=== PATIENT | female | born 1995 | race Caucasian/White ===

== ENCOUNTER 2016-07-02 14:34 | Emergency (ER) | payer OTHER ==
[2016-07-02] MEDS ORDERED: ONDANSETRON 4 MG/2 ML VIAL IVP STA (15:07)
[2016-07-02] MEDS ORDERED: SODIUM CHLORIDE 0.9% 500 ML IV STA (15:07)
[2016-07-02 15:50] LABS: Basophils # (A) 0.1 k/uL (0-0.2); Basophils % (A) 1 %; CH 31.7; CHCM 35.2; Eosinophils # (A) 0.1 k/uL (0-0.7); Eosinophils % (A) 1 %; HCT 41.4 % (34.0-46.0); HDW 2.75; HGB 13.9 gm/dL (11.4-16.0); Luc # (Auto) 0.21; Luc % (Auto) 2; Lymphocytes # (A) 1.9 k/uL (1.0-4.8); Lymphocytes % (A) 19 %; MCH 30.5 pg (25.0-35.0); MCHC 33.7 g/dL (31.0-37.0); MCV 90.7 fL (80.0-100.0); Mean Platelet Volume 8.7; Monocytes # (A) 0.5 k/uL (0-1.0); Monocytes % (A) 5 %; Neutrophils # (A) 7.2 k/uL (1.3-7.7); Neutrophils % (A) 73 %; RBC 4.56 m/uL (3.80-5.40); RDW 12.7 % (11.5-15.5); WBC 9.9 k/uL (3.8-10.6); WBC (Perox) 10.16
[2016-07-02 15:59] LABS: ALT 56 U/L (9-52); AST 24 U/L (14-36); Alkaline Phosphatase 52 U/L (38-126); Amylase <30 U/L (30-110); Anion Gap 10 mmol/L; Blood Urea Nitrogen 6 mg/dL (7-17); Calcium 9.1 mg/dL (8.4-10.2); Carbon Dioxide 23 mmol/L (22-30); Chloride 105 mmol/L (98-107); Glucose 71 mg/dL (74-99); Non-African American GFR(MDRD) >60 (>60 ml/min/1.73 sqM); Potassium 3.8 mmol/L (3.5-5.1); Sodium 138 mmol/L (137-145); Total Bilirubin 0.5 mg/dL (0.2-1.3); Total Protein 7.1 g/dL (6.3-8.2)
[2016-07-02 16:00] LABS: Amorphous Sediment,Urine Occasional /hpf; Appearance,Urine Turbid (Clear); Bacteria,Urine Moderate /hpf; Bilirubin,Urine Negative (Negative); Glucose,Urine (UA) Negative (Negative); Ketones,Urine Negative (Negative); Leukocyte Esterase,Urine Large (Negative); Nitrite,Urine Negative (Negative); PH, Urine 7.5 (5.0-8.0); Particle Count 19653; Protein,Urine Trace (Negative); RBC,Urine 6 /hpf (0-5); Specific Gravity,Urine 1.015 (1.001-1.035); Squamous Epithelial Cell,Urine 8 /hpf (0-4); UA Billing (MACRO vs. MICRO) MICRO; WBC,Urine 8 /hpf (0-5)
--- NOTE | 2016-07-02 16:03 | ED ---
Abdominal Pain HPI - General Chief Complaint: Abdominal Pain Stated Complaint: abdominal pain Time Seen by Provider: 07/02/16 15:02 Source: patient, RN notes reviewed Mode of arrival: ambulatory Limitations: no limitations - History of Present Illness Initial Comments: 20-year-old female presents emergency Department chief complaint lower abdominal pain. Patient states that she had some lower abdominal pain started last night but states it has alleviated some of states she does have epigastric pain. Patient denies any vomiting states she's had some slight nausea no dysuria no hematuria no vaginal bleeding or vaginal discharge. Patient states she had a last year and delivered though she states she has no chance at this time. Patient has fever, chills, flank pain. Patient offers no other complaints at this time. - Related Data Home Medications Medication Instructions Recorded Confirmed levETIRAcetam [Keppra] 2,000 mg PO Q12HR 06/13/15 07/02/16 Allergies Allergy/AdvReac Type Severity Reaction Status Date / Time sulfamethoxazole Allergy Unknown Verified 07/02/16 15:17 [From ] trimethoprim [From Janra] Allergy Unknown Verified 07/02/16 15:17 Review of Systems ROS Statement: Those systems with pertinent positive or pertinent negative responses have been documented in the HPI. ROS Other: All systems not noted in ROS Statement are negative. Past Medical History Past Medical History: GERD/Reflux, Seizure Disorder Additional Past Medical History / Comment(s): stomach ulcers, hypoglycemia, History of Any Multi-Drug Resistant Organisms: None Reported Past Surgical History: Appendectomy, Tonsillectomy Additional Past Surgical History / Comment(s): tubes in ears Past Psychological History: ADD/ADHD, Depression Smoking Status: Current every day smoker Past Alcohol Use History: Occasional Past Drug Use History: None Reported General Exam Limitations: no limitations General appearance: alert, in no apparent distress Head exam: Present: atraumatic, normocephalic, normal inspection Respiratory exam: Present: normal lung sounds bilaterally. Absent: respiratory distress, wheezes, rales, rhonchi, stridor Cardiovascular Exam: Present: regular rate, normal rhythm, normal heart sounds. Absent: systolic murmur, diastolic murmur, rubs, gallop, clicks GI/Abdominal exam: Present: soft, tenderness (Minimal suprapubic tenderness), normal bowel sounds. Absent: distended, guarding, rebound, rigid Back exam: Absent: CVA tenderness (R), CVA tenderness (L) Skin exam: Present: warm, dry, intact, normal color. Absent: rash Course Vital Signs 07/02/16 14:51 Temperature 98.4 F Pulse Rate 66 Respiratory 18 Rate Blood Pressure 115/69 O2 Sat by Pulse 99 Oximetry Medical Decision Making - Medical Decision Making 20-year-old female presented for lower abdominal pain. Patient did have a positive test ultrasound does show single viable IUP 7 weeks and 2 days with a heart rate 178. Patient states she does not warrant further care for this at this time. Patient be discharged and strongly advised to follow-up with her ANALYSIS MANAGER Dr. Cole. - Lab Data Result diagrams: 07/02/16 15:20 07/02/16 15:20 Lab Results 07/02/16 07/02/16 07/02/16 Range/Units 15:20 15:20 15:20 WBC 9.9 (3.8-10.6) k/uL RBC 4.56 (3.80-5.40) m/uL Hgb 13.9 (11.4-16.0) gm/dL Hct 41.4 (34.0-46.0) % MCV 90.7 (80.0-100.0) fL MCH 30.5 (25.0-35.0) pg MCHC 33.7 (31.0-37.0) g/dL RDW 12.7 (11.5-15.5) % Plt Count 216 (150-450) k/uL Neutrophils % 73 % Lymphocytes % 19 % Monocytes % 5 % Eosinophils % 1 % Basophils % 1 % Neutrophils # 7.2 (1.3-7.7) k/uL Lymphocytes # 1.9 (1.0-4.8) k/uL Monocytes # 0.5 (0-1.0) k/uL Eosinophils # 0.1 (0-0.7) k/uL Basophils # 0.1 (0-0.2) k/uL Sodium 138 (137-145) mmol/L Potassium 3.8 (3.5-5.1) mmol/L Chloride 105 (98-107) mmol/L Carbon Dioxide 23 (22-30) mmol/L Anion Gap 10 mmol/L BUN 6 L (7-17) mg/dL Creatinine 0.69 (0.52-1.04) mg/dL Est GFR (MDRD) Af Amer >60 (>60 ml/min/1.73 sqM) Est GFR (MDRD) Non-Af >60 (>60 ml/min/1.73 sqM) Glucose 71 L (74-99) mg/dL Calcium 9.1 (8.4-10.2) mg/dL Total Bilirubin 0.5 (0.2-1.3) mg/dL AST 24 (14-36) U/L ALT 56 H (9-52) U/L Alkaline Phosphatase 52 (38-126) U/L Total Protein 7.1 (6.3-8.2) g/dL Albumin 4.0 (3.5-5.0) g/dL Amylase <30 L (30-110) U/L Lipase 76 (23-300) U/L Urine Color Urine Appearance (Clear) Urine pH (5.0-8.0) Ur Specific [place] (1.001-1.035) Urine Protein (Negative) Urine Glucose (UA) (Negative) Urine Ketones (Negative) Urine Blood (Negative) Urine Nitrate (Negative) Urine Bilirubin (Negative) Urine Urobilinogen (<2.0) mg/dL Ur Leukocyte Esterase (Negative) Urine RBC (0-5) /hpf Urine WBC (0-5) /hpf Ur Squamous Epith Cells (0-4) /hpf Amorphous Sediment (None) /hpf Urine Bacteria (None) /hpf Urine HCG, Qual Detected (Not Detectd) 07/02/16 Range/Units 15:20 WBC (3.8-10.6) k/uL RBC (3.80-5.40) m/uL Hgb (11.4-16.0) gm/dL Hct (34.0-46.0) % MCV (80.0-100.0) fL MCH (25.0-35.0) pg MCHC (31.0-37.0) g/dL RDW (11.5-15.5) % Plt Count (150-450) k/uL Neutrophils % % Lymphocytes % % Monocytes % % Eosinophils % % Basophils % % Neutrophils # (1.3-7.7) k/uL Lymphocytes # (1.0-4.8) k/uL Monocytes # (0-1.0) k/uL Eosinophils # (0-0.7) k/uL Basophils # (0-0.2) k/uL Sodium (137-145) mmol/L Potassium (3.5-5.1) mmol/L Chloride (98-107) mmol/L Carbon Dioxide (22-30) mmol/L Anion Gap mmol/L BUN (7-17) mg/dL Creatinine (0.52-1.04) mg/dL Est GFR (MDRD) Af Amer (>60 ml/min/1.73 sqM) Est GFR (MDRD) Non-Af (>60 ml/min/1.73 sqM) Glucose (74-99) mg/dL Calcium (8.4-10.2) mg/dL Total Bilirubin (0.2-1.3) mg/dL AST (14-36) U/L ALT (9-52) U/L Alkaline Phosphatase (38-126) U/L Total Protein (6.3-8.2) g/dL Albumin (3.5-5.0) g/dL Amylase (30-110) U/L Lipase (23-300) U/L Urine Color Yellow Urine Appearance Turbid H (Clear) Urine pH 7.5 (5.0-8.0) Ur Specific [place] 1.015 (1.001-1.035) Urine Protein Trace H (Negative) Urine Glucose (UA) Negative (Negative) Urine Ketones Negative (Negative) Urine Blood Negative (Negative) Urine Nitrate Negative (Negative) Urine Bilirubin Negative (Negative) Urine Urobilinogen 2.0 (<2.0) mg/dL Ur Leukocyte Esterase Large H (Negative) Urine RBC 6 H (0-5) /hpf Urine WBC 8 H (0-5) /hpf Ur Squamous Epith Cells 8 H (0-4) /hpf Amorphous Sediment Occasional H (None) /hpf Urine Bacteria Moderate H (None) /hpf Urine HCG, Qual (Not Detectd) Disposition Clinical Impression: Disposition: HOME SELF-CARE Condition: Stable Instructions: (ED) Additional Instructions: Please return to the Emergency Department if symptoms worsen or any other concerns. Referrals: Bharat Jain DO [Primary Care Provider] - 1-2 days Time of Disposition: 17:05
--- NOTE | 2016-07-02 17:07 | US ---
EXAMINATION TYPE: US OB <=14 wks transvag DATE OF EXAM: 07/02/2016 4:38 PM COMPARISON: NONE CLINICAL HISTORY: Pain. EXAM PERFORMED: Transvaginal (TV) EXAM MEASUREMENTS: GESTATIONAL AGE / DATING Physician Established: none Dates by LMP: uncertain, possibly 05/17/2106 Dates by First Scan: no previous Dates by Current Scan for: (7 weeks/2 days) EDC: 02/16/2017 MATERNAL ANATOMY Uterus: 10.5 x 6.7 x 8.4 cm Right Ovary: 2.8 x 1.8 x 2.5 cm Left Ovary: 2.8 x 2.4 x 3.0 cm Post CDS / Adnexa: fluid right adnexa Presence of free fluid: yes, rt adnexa Presence of corpus luteal cyst: possible, faintly hypoechoic 2.0 cm area left ovary Presence of subchorionic bleed: no GESTATION / SURVEY CRL: 1.1 (7 weeks/2 days) Yolk Sac (normal less than 6mm): 4.9 Heart Rate: 178 bpm Rhythm: Normal IUP: Viable IUP Date of LMP: uncertain, possibly 05/17/2016 TECHNOLOGIST IMPRESSION: Single, viable 7 week 2 day IUP. EDC of 02/16/2017 IMPRESSION: The ultrasound gestational age is 7 weeks 2 days. I see no complicating process.
[2016-07-02 17:22] VITALS: BP 125/76; PULSE 78; RESP 16; TEMP 98.6
== END 2016-07-02 17:22 | disposition home or self-care (01) ==
LOC: EC 14:34
DX: O99.89 Other specified diseases and conditions complicating pregnancy, childbirth and the puerperium (principal); O99.351 Diseases of the nervous system complicating pregnancy, first trimester; O99.611 Diseases of the digestive system complicating pregnancy, first trimester; O99.331 Smoking (tobacco) complicating pregnancy, first trimester; R10.30 Lower abdominal pain, unspecified; R10.13 Epigastric pain; R11.0 Nausea; K21.9 Gastro-esophageal reflux disease without esophagitis; G40.909 Epilepsy, unspecified, not intractable, without status epilepticus; F17.200 Nicotine dependence, unspecified, uncomplicated; Z32.01 Encounter for pregnancy test, result positive; Z3A.01 Less than 8 weeks gestation of pregnancy; Z87.19 Personal history of other diseases of the digestive system; Z79.899 Other long term (current) drug therapy; Z88.2 Allergy status to sulfonamides; Z90.49 Acquired absence of other specified parts of digestive tract
CPT/HCPCS: 36415; 80053; 82150; 83690; 85025; 81001; 81025; 84702; 76817; 99284; 96374; 96361; J2405; 76801

== ENCOUNTER 2016-07-21 16:57 | Emergency (ER) | payer OTHER ==
[2016-07-21] MEDS ORDERED: ACETAMINOPHEN IV (For NPO) 1,000 MG in EMPTY BAG 1 BAG IVPB ONE (17:50)
[2016-07-21] MEDS ORDERED: SODIUM CHLORIDE 0.9% 1,000 ML IV ONE (17:50)
[2016-07-21] MEDS ORDERED: METOCLOPRAMIDE 5 MG/ML 2 ML VIAL IVP STA (17:51)
--- NOTE | 2016-07-21 17:54 | ED ---
General Adult HPI - General Chief complaint: Upper Respiratory Infection Stated complaint: flu-like symptoms Time Seen by Provider: 07/21/16 17:37 Source: patient, RN notes reviewed, old records reviewed Mode of arrival: ambulatory Limitations: no limitations - History of Present Illness Initial comments: Chief complaint history of present illness a 20-year-old female whose 9-10 weeks . Here with flu symptoms. 2 over children recently diagnosed with the flu. Patient complains of fever muscle aches and pains and vomiting. - Related Data Home Medications Medication Instructions Recorded Confirmed levETIRAcetam [Keppra] 2,000 mg PO Q12HR 06/13/15 07/21/16 Acetaminophen Tab [Tylenol] 650 mg PO Q6H PRN 07/21/16 07/21/16 Previous Rx's Medication Instructions Recorded Ondansetron Odt [Zofran ODT] 4 mg PO Q8HR PRN #5 tab 07/21/16 Oseltamivir [Tamiflu] 75 mg PO Q12HR #10 cap 07/21/16 Allergies Allergy/AdvReac Type Severity Reaction Status Date / Time sulfamethoxazole Allergy Unknown Verified 07/21/16 18:31 [From ] trimethoprim [From Janra] Allergy Unknown Verified 07/21/16 18:31 Review of Systems ROS Statement: Those systems with pertinent positive or pertinent negative responses have been documented in the HPI. Review of systems. Mild headache or visual acuity changes no stiff neck. Occasional cough vomiting several times muscle aches and pains and fever. Both her children have a flu. All systems are reviewed. Past medical problems significant for GERD, seizure disorder for which he takes Keppra, stomach ulcers. Surgeries appendectomy tonsillectomy and ear tubes. Family history noncontributory nonsmoker nondrinker ALLERGIES to sulfa. ROS Other: All systems not noted in ROS Statement are negative. Past Medical History Past Medical History: GERD/Reflux, Seizure Disorder Additional Past Medical History / Comment(s): stomach ulcers, hypoglycemia, History of Any Multi-Drug Resistant Organisms: None Reported Past Surgical History: Appendectomy, Tonsillectomy Additional Past Surgical History / Comment(s): tubes in ears Past Psychological History: ADD/ADHD, Depression Smoking Status: Current every day smoker Past Alcohol Use History: Occasional Past Drug Use History: None Reported General Exam - General Exam Comments Initial Comments: General: The patient is awake and alert, complaining of fever, muscle aches and pains, flu type symptoms for 24 hours. Vital signs show temperature 100.8 pulse 98 respiratory rate 20 pulse ox 99% room air blood pressure 117/62 Eye: Pupils are equal, round and reactive to light, extra-ocular movements are intact ; there is normal conjunctiva bilaterally. No signs of icterus. Ears, nose, mouth and throat: There are moist mucous membranes and no oral lesions. Neck: The neck is supple, there is no tenderness . Cardiovascular: There is a regular rate and rhythm. No murmur, rub or gallop is appreciated. Respiratory: Lungs are clear to auscultation, respirations are non-labored, breath sounds are equal. No wheezes, stridor, rales, or rhonchi. Gastrointestinal: Soft, non-distended, non-tender abdomen without masses or organomegaly noted. There is no rebound or guarding present. No CVA tenderness. Bowel sounds are unremarkable. Back: There is no tenderness to palpation in the midline. There is no obvious deformity. No rashes noted. Musculoskeletal: Normal ROM, no tenderness, There is no pedal edema. There is no calf tenderness or swelling. Sensation intact. Neurological: No neuro deficits complained of or noted on exam. Skin: Skin is warm and dry and no rashes or lesions are noted. Limitations: no limitations Course Vital Signs 07/21/16 07/21/16 07/21/16 17:13 19:10 20:13 Temperature 100.8 F H 101.5 F H 99.2 F Pulse Rate 98 100 87 Respiratory 20 18 18 Rate Blood Pressure 117/62 137/90 105/53 O2 Sat by Pulse 99 97 97 Oximetry Medical Decision Making - Medical Decision Making Patient's feeling much better after IV fluids. The patient caring for 2 children with influenza. She has influenza symptoms. She'll be placed on Tamiflu to be taken as directed. Follow-up with family physician return emergency room as needed. Disposition Clinical Impression: Influenza Disposition: HOME SELF-CARE Condition: Stable Instructions: Influenza (ED) Additional Instructions: Use Zofran control nausea vomiting increase fluids. Take Tamiflu one tablet twice day for 5 days. Follow-up with your family physician and your OB and/or return emergency room as needed Prescriptions: Ondansetron Odt [Zofran ODT] 4 mg PO Q8HR PRN #5 tab PRN Reason: Nausea Oseltamivir [Tamiflu] 75 mg PO Q12HR #10 cap Time of Disposition: 20:28
[2016-07-21] MEDS ORDERED: SODIUM CHLORIDE 0.9% 1,000 ML IV SCH (18:00)
[2016-07-21 19:21] VITALS: RESP 18
[2016-07-21 20:14] VITALS: BP 105/53; PULSE 87; TEMP 99.2
[2016-07-21] MEDS ORDERED: OSELTAMIVIR 75 MG CAP PO STA (20:25)
== END 2016-07-21 20:51 | disposition home or self-care (01) ==
LOC: EC 16:57
DX: J11.1 Influenza due to unidentified influenza virus with other respiratory manifestations (principal); O26.891 Other specified pregnancy related conditions, first trimester; Z3A.09 9 weeks gestation of pregnancy; Z79.899 Other long term (current) drug therapy; Z88.2 Allergy status to sulfonamides; Z88.8 Allergy status to other drugs, medicaments and biological substances; G40.909 Epilepsy, unspecified, not intractable, without status epilepticus; O99.331 Smoking (tobacco) complicating pregnancy, first trimester
CPT/HCPCS: 96365; 96375; 96361; 99283; J2765; J0131

== ENCOUNTER → 2016-09-09 | Outpatient (CLI) | payer OTHER ==
[2016-09-09 14:53] LABS: CH 31.9; CHCM 34.3; HCT 36.2 % (34.0-46.0); HDW 2.71; HGB 12.2 gm/dL (11.4-16.0); MCH 31.4 pg (25.0-35.0); MCHC 33.7 g/dL (31.0-37.0); MCV 93.4 fL (80.0-100.0); Mean Platelet Volume 7.1; RBC 3.88 m/uL (3.80-5.40); RDW 14.1 % (11.5-15.5); WBC 11.6 k/uL (3.8-10.6)
[2016-09-09 14:57] LABS: Appearance,Urine Clear (Clear); Bacteria,Urine Rare /hpf; Bilirubin,Urine Negative (Negative); Glucose,Urine (UA) Negative (Negative); Ketones,Urine Negative (Negative); Leukocyte Esterase,Urine Moderate (Negative); Mucus,Urine Rare /hpf; Nitrite,Urine Negative (Negative); PH, Urine 5.5 (5.0-8.0); Particle Count 3333; Protein,Urine Negative (Negative); RBC,Urine 1 /hpf (0-5); Specific Gravity,Urine 1.015 (1.001-1.035); Squamous Epithelial Cell,Urine 3 /hpf (0-4); UA Billing (MACRO vs. MICRO) MICRO; Urobilinogen,Urine <2.0 mg/dL (<2.0); WBC,Urine 7 /hpf (0-5)
[2016-09-09 15:53] LABS: HCG,Quantitative Serum 17372.6 mIU/mL
[2016-09-09 19:49] LABS: Treponemal Ab Non-Reactive (Non-Reactive)
[2016-09-10 07:31] LABS: HIV-1/HIV-2 Ab Screen NONREAC (NON REAC)
== END | disposition home or self-care (01) ==
LOC: LABWHC1 14:19
PROVIDERS: ATTEND Obstetrics & Gynecology
DX: O23.41 Unspecified infection of urinary tract in pregnancy, first trimester (principal); E55.9 Vitamin D deficiency, unspecified; Z3A.00 Weeks of gestation of pregnancy not specified
CPT/HCPCS: 36415; 80306; 81001; 82306; 82947; 84702; 85027; 86762; 86780; 86850; 86900; 86901; 87086; 87389

== ENCOUNTER → 2017-01-08 | Outpatient (CLI) | payer OTHER ==
--- NOTE | 2017-01-08 15:36 | US ---
EXAMINATION TYPE: US OB anatomy transabd DATE OF EXAM: 01/08/2017 COMPARISON: 07/02/2016 HISTORY: 21-year-old female Z34.90 SUPERVISION OF NORMAL 3rd trimester scan, pt has no comp laints at this time TECHNIQUE: Transabdominal (TA) FINDINGS: EXAM MEASUREMENTS: GESTATIONAL AGE / DATING Physician Established: (34 weeks/3 days) EDC: 02/16/2017 Dates by LMP: Unknown Dates by First Scan: (34 weeks/3 days) EDC: 02/16/2017 Dates by Current Scan for: (33 weeks/3 days) EDC: 02/23/2017 SURVEY IUP: Single PLACENTA: Anterior PREVIA: No previa RUBÉN: 13.2 cm Normal CERVICAL LENGTH (transabdominal: norm > 3.0cm): 3.6 cm BIOMETRY PRESENTATION: Vertex BPD: 8.5 cm 34 weeks / 1 days HC: 30.7 cm 34 weeks / 1 days AC: 30.3 cm 34 weeks / 2 days FL: 6.4 cm 32 weeks / 6 days ESTIMATED WEIGHT IN GRAMS: 2302 grams ESTIMATED WEIGHT IN LBS/OZS: 5 lbs. 1 oz. WEIGHT PERCENTAGE BASED ON ESTABLISHED DATE: 29.5 % HC/AC: 1.01 Normal FL/AC: 21 Normal HEART RATE: 143 bpm RHYTHM: Normal ANATOMY SEEN (within normal limits): Lateral Vent (< 1 cm) 0.6 cm Cisterna Magna (< 1.1 cm) 0.5 cm Cerebellum (varies with age) 4.7 cm Cavus Septi Pellucidi Four Chamber Heart Outflow tracts: LVOT/RVOT Stomach Situs Nose / Lips Diaphragm Kidneys (bilateral) Three Vessel Cord ANATOMY NOT SEEN OR SUBOPTIMALLY VISUALIZED: Choroid Plexus (bilateral) Midline Falx Cord Insert Bladder Longitudinal Spine Transverse Spine Arms (bilateral) Legs (bilateral) SCREW MACHINE SETTER NOTES:Single, viable IUP/ Growth parameters 29.5 %/ No abnormality seen at this time IMPRESSION: 1. Single live intrauterine with established gestational age of 34 weeks 3 days by prior da ting scan. Current ultrasound biometry is smaller but still concordant (33 weeks 3 days). This places the gestation at the 30th percentile for weight. Follow-up as indicated. 2. Note that a number of structures of the survey were either not seen or were suboptimally vis ualized due to position and relatively advanced age.
== END | disposition home or self-care (01) ==
LOC: RADUSWWP 14:42
PROVIDERS: ATTEND Obstetrics & Gynecology
DX: Z34.93 Encounter for supervision of normal pregnancy, unspecified, third trimester (principal); Z3A.33 33 weeks gestation of pregnancy
CPT/HCPCS: 76811

== ENCOUNTER 2017-01-17 22:58 | Outpatient (CLI) | payer OTHER ==
[2017-01-17 23:20] VITALS: BP 118/57; PULSE 84; RESP 16; TEMP 97.1
--- NOTE | 2017-01-18 09:28 | P.MSEPDOC ---
Presenting Problems - Arrival Data Date of Arrival on Unit: 01/17/17 Time of Arrival on Unit: 22:58 Mode of Transport: Wheelchair - Complaint OB-Reason for Admission/Chief Complaint: Possible Onset of Labor Comment: Contractions that started around 2213 this evening approximately 3 minutes apart Medical History - Information : 4 Para: 3 Term: 2 : 1 Abortions: Spontaneous or Elective: 0 Number of Living Children: 3 - Gestational Age Expected Date of Delivery: 02/16/17 Gestational Age by KACI (wks/days): 35 Weeks and 6 Days Review of Systems - Review of Systems Constitutional: No problems Breast: No problems ENT: No problems Cardiovascular: No problems Respiratory: No problems Gastrointestinal: No problems Genitourinary: No problems Musculoskeletal: No problems Neurological: No problems Skin: No problems Vital Signs - Temperature Temperature: 97.1 F Temperature Source: Temporal Artery Scan - Pulse Pulse Oximetery Pulse Rate: 84 Pulse Assessment Method: Automatic Cuff - Respirations Respiratory Rate: 16 Oxygen Delivery Method: Room Air - Blood Pressure Sitting Blood Pressure: 118/57 Blood Pressure Mean: 77 Blood Pressure Source: Automatic Cuff Medical Screen Scoring (Pre) - Cervical Exam Dilation: 1-3 cm = 1 Effacement: More than 50% = 2 Membranes: Intact - Uterine Contractions Frequency: > 5 minutes apart = 1 Duration: N/A Intensity: N/A - Maternal Vital Signs Maternal Temperature: N/A Maternal Blood Pressure: N/A Signs of Preeclampsia: N/A Maternal Respirations: N/A - Maternal Trauma Maternal Trauma: N/A - Assessment Baseline FHR: 140 Heart Rate - NICHD Category: Category I (Normal) = 0 NST: Reactive Position: N/A Station: N/A - Total Score Total Score (Pre): 4 - Level of Risk Level of Risk: Low (0-5) Physician Notification (Pre) - Physician Notified Physician Notified Date: 01/18/17 Physician Notified Time: 23:30 Physician/Practitioner Notifed:: Dr. Cano - Notification Comment Comment: Orders given to recheck cervix at 1 hour, if cervix remains unchanged okay to discharge patient home with instructions, if patient has made cervical change call physician with report. Disposition - Disposition OB Disposition: Discharge to home, Written follow up instructions reviewed Discharge Date: 01/18/17 Discharge Time: 00:15 I agree with the RN Medical Screening Exam: Yes Risk & Benefit of care provided described in d/c instruction: Yes Diagnosis: FALSE LABOR BEFORE 37 COMPLETED WEEKS OF GEST, THIRD TRI
== END 2017-01-18 00:15 | disposition home or self-care (01) ==
LOC: FBPOP 22:58
PROVIDERS: ATTEND Obstetrics & Gynecology
DX: O47.03 False labor before 37 completed weeks of gestation, third trimester (principal); Z3A.35 35 weeks gestation of pregnancy
CPT/HCPCS: 59025; G0463; 99213

== ENCOUNTER 2017-01-26 00:18 | Outpatient (CLI) | payer OTHER ==
[2017-01-26 01:55] VITALS: BP 108/62; PULSE 65; RESP 16; TEMP 97.6
--- NOTE | 2017-04-22 13:52 | P.MSEPDOC ---
Presenting Problems - Arrival Data Date of Arrival on Unit: 01/26/17 Time of Arrival on Unit: 00:19 Mode of Transport: Wheelchair - Complaint OB-Reason for Admission/Chief Complaint: Possible Onset of Labor Medical History - Information : 4 Para: 3 - Gestational Age Gestational Age by KACI (wks/days): 37 Weeks and 0 Days - History Comment: DOM pt of dr stewart from [place] Review of Systems - Review of Systems Constitutional: No problems Breast: No problems ENT: No problems Cardiovascular: No problems Respiratory: No problems Gastrointestinal: No problems Genitourinary: No problems Musculoskeletal: No problems Neurological: No problems Skin: No problems Vital Signs - Temperature Temperature: 97.6 F Temperature Source: Temporal Artery Scan - Pulse Right Sitting Brachial Pulse Rate: 65 Pulse Assessment Method: Automatic Cuff - Respirations Respiratory Rate: 16 Oxygen Delivery Method: Room Air O2 Sat by Pulse Oximetry: 97 - Blood Pressure Right Arm Sitting Blood Pressure: 108/62 Blood Pressure Mean: 77 Blood Pressure Source: Automatic Cuff Medical Screen Scoring (Pre) - Cervical Exam Dilation: 1-3 cm = 1 Effacement: More than 50% = 2 Membranes: Intact - Uterine Contractions Frequency: > or = 36 weeks =2 Duration: > 40 seconds = 2 - Maternal Vital Signs Maternal Temperature: N/A Maternal Blood Pressure: N/A Signs of Preeclampsia: N/A Maternal Respirations: N/A - Maternal Trauma Maternal Trauma: N/A - Assessment Baseline FHR: 130 Heart Rate - NICHD Category: Category I (Normal) = 0 NST: Reactive Position: N/A Station: N/A - Total Score Total Score (Pre): 7 - Level of Risk Level of Risk: Medium (6-9) Physician Notification (Pre) - Physician Notified Physician Notified Date: 01/26/17 Physician Notified Time: 01:44 Spoke With: dr madrigal New Order Received: Yes - Notification Comment Comment: discharge home Disposition - Disposition OB Disposition: Discharge to home Discharge Date: 01/26/17 Discharge Time: 01:44 I agree with the RN Medical Screening Exam: Yes Risk & Benefit of care provided described in d/c instruction: Yes Diagnosis: FALSE LABOR AT OR AFTER 37 COMPLETED WEEKS OF GESTATION
== END 2017-01-26 01:47 | disposition home or self-care (01) ==
LOC: FBPOP 00:18
PROVIDERS: ATTEND Obstetrics & Gynecology Obstetrics
DX: O47.1 False labor at or after 37 completed weeks of gestation (principal); Z3A.37 37 weeks gestation of pregnancy
CPT/HCPCS: 59025; G0463; 99213

== ENCOUNTER 2017-02-13 13:50 | Outpatient (CLI) | payer OTHER ==
[2017-02-13 15:36] VITALS: BP 104/65; PULSE 85; RESP 16; TEMP 97.5
--- NOTE | 2017-03-07 20:10 | P.MSEPDOC ---
Presenting Problems - Arrival Data Date of Arrival on Unit: 02/13/17 Time of Arrival on Unit: 13:50 Mode of Transport: Ambulatory - Complaint Comment: Pt sent up from U/S after a low RUBÉN and low EFW. Pt states her OB Dr in [place] was notified of these results and told the pt to report to [facility] at this hospital for an evaluation. Medical History - Information : 4 Para: 3 Term: 2 : 1 Abortions: Spontaneous or Elective: 0 Number of Living Children: 3 - Gestational Age Gestational Age by KACI (wks/days): 39 Weeks and 4 Days Review of Systems - Review of Systems Constitutional: No problems Breast: No problems ENT: No problems Cardiovascular: No problems Respiratory: No problems Gastrointestinal: No problems Genitourinary: No problems Musculoskeletal: No problems Skin: No problems Comment: Pt reports she has epilepsy and takes Keppra for it. Vital Signs - Temperature Temperature: 97.5 F Temperature Source: Oral - Pulse Brachial Pulse Rate: 85 Pulse Assessment Method: Automatic Cuff - Respirations Respiratory Rate: 16 Oxygen Delivery Method: Room Air - Blood Pressure Right Arm Blood Pressure: 104/65 Blood Pressure Mean: 78 Blood Pressure Source: Automatic Cuff Medical Screen Scoring (Pre) - Cervical Exam Dilation: Exam Deferred Effacement: Exam Deferred Membranes: Intact - Uterine Contractions Frequency: > 5 minutes apart = 1 Duration: > 40 seconds = 2 Intensity: N/A - Maternal Vital Signs Maternal Temperature: N/A Maternal Blood Pressure: N/A Signs of Preeclampsia: N/A Maternal Respirations: N/A - Maternal Trauma Maternal Trauma: N/A - Assessment Baseline FHR: 140 Heart Rate - NICHD Category: Category I (Normal) = 0 NST: Reactive Position: N/A Station: N/A - Total Score Total Score (Pre): 3 - Level of Risk Level of Risk: Low (0-5) Physician Notification (Pre) - Physician Notified Physician Notified Date: 02/13/17 Physician Notified Time: 14:47 Physician/Practitioner Notifed:: Dr. Aguilar Spoke With: Dr. Aguilar New Order Received: Yes - Notification Comment Comment: Notified Dr on pts arrival after U/S results of low RUBÉN of 7.33 and low EFW of 2975g. Dr. Lensmeyer states she should be d/c and be seen by her OB Dr in [place]. Disposition - Disposition OB Disposition: Triage Discharge Date: 02/13/17 Discharge Time: 14:55 I agree with the RN Medical Screening Exam: Yes Risk & Benefit of care provided described in d/c instruction: Yes Diagnosis: RELATED CONDITIONS, UNSPECIFIED, THIRD TRIMESTER
== END 2017-02-13 14:55 | disposition home or self-care (01) ==
LOC: FBPOP 13:50
PROVIDERS: ATTEND Obstetrics & Gynecology
DX: O26.93 Pregnancy related conditions, unspecified, third trimester (principal); Z3A.39 39 weeks gestation of pregnancy
CPT/HCPCS: 59025; G0463; 99213

== ENCOUNTER → 2017-02-13 | Outpatient (CLI) | payer OTHER ==
--- NOTE | 2017-02-13 16:16 | US ---
EXAMINATION TYPE: US OB >= 14 wk fetus DATE OF EXAM: 02/13/2017 COMPARISON: US CLINICAL HISTORY: Z34.90 Supervision PregnancyEFW, RUBÉN, position TECHNIQUE: Transabdominal (TA) GESTATIONAL AGE / DATING Physician Established: (39weeks/4 days) EDC: 02/16/2017 Dates by LMP: Unknown Dates by First Scan: (39weeks/4 days) EDC: 02/16/2017 Dates by Current Scan: (36 weeks/2 days) EDC: 03/11/2017 SURVEY IUP: Single PLACENTA: Anterior PREVIA: No Previa RUBÉN: 7.3 cm Oligohydramnios CERVICAL LENGTH (transabdominal: norm > 3.0cm): 3.0 cm BIOMETRY PRESENTATION: Vertex BPD: 9.0 cm 36 weeks / 4 days HC: 32.9 cm 37 weeks / 3 days AC: 32.8 cm 36 weeks / 5 days FL: 7.0 cm 35 weeks / 6 days ESTIMATED WEIGHT IN GRAMS: 2975 grams ESTIMATED WEIGHT IN LBS/OZ: 6 lbs. 9 oz. WEIGHT PERCENTAGE BASED ON ESTABLISHED DATES: 10.4% HC/AC: 1.00 Normal FL/AC: 21 Normal HEART RATE: 143 bpm RHYTHM: Normal Single, viable IUP/ RUBÉN low and growth parameters in 10th percentile or >3 weeks difference/ Results called to Dr Shay and pt was told to go to L&D to be evaluated IMPRESSION: 1. Weight is in the 10th percentile based on current measurements. Patient was transferred to labor a nd delivery. 2. Cardiac activity measures 142 bpm. 3. Oligohydramnios. 4. Estimated gestational age on the current ultrasound based on the current measurements is 36 weeks 2 days gestation, 3 weeks below the 39 weeks 4 days gestation of the first ultrasound. Current calcul ated EDC would be 03/11/2017. Correlate this with her physician established EDC of 02/16/2017.
== END ==
LOC: RADUSWWP 12:50
PROVIDERS: ATTEND Obstetrics & Gynecology
DX: O41.03X0 Oligohydramnios, third trimester, not applicable or unspecified (principal); Z3A.36 36 weeks gestation of pregnancy
CPT/HCPCS: 76805

== ENCOUNTER 2017-12-01 20:34 | Emergency (ER) | payer OTHER ==
[2017-12-01 20:40] VITALS: BP 113/75; PULSE 64; RESP 18; TEMP 98.3
[2017-12-01] MEDS ORDERED: SODIUM CHLORIDE 0.9% 1,000 ML IV ONE (20:52)
--- NOTE | 2017-12-01 21:28 | ED ---
General Adult HPI - General Chief complaint: Shortness of Breath Stated complaint: throat pain/SOB Time Seen by Provider: 12/01/17 20:46 Source: patient Mode of arrival: ambulatory Limitations: no limitations - History of Present Illness Initial comments: 21-year-old female patient presents to the emergency department today for evaluation of shortness of breath. Patient states that she woke from a nap approximately one hour ago and she had a scratchy throat. Patient states it has progressed into feeling that she cannot breathe. States that her chest feels tight. States she is swallowing without difficulty. Denies any fever or chills. States that she does have some mild nasal congestion with this. Patient states that she has also been having severe pelvic pain for the last few days. States that she is having a yellowish vaginal discharge. She denies any abnormal vaginal bleeding. Patient states that she does have an IUD and is no longer able to feel the strings. She denies any hematuria, dysuria, urinary frequency, urinary urgency. Denies any dyspareunia. States that the pain in her pelvis was so bad a poinsettia made her nauseated and she vomited. She denies any diarrhea. She denies any recent travel or antibiotic use. Patient denies any recent rash, shortness breath, chest pain, constipation, back pain, numbness, tingling, dizziness, weakness, headache, visual changes, or any other complaints. - Related Data Home Medications Medication Instructions Recorded Confirmed Ibuprofen [Motrin Ib] 600 mg PO Q6H PRN 12/01/17 12/01/17 levETIRAcetam [Keppra] 2,000 mg PO BID 12/01/17 12/01/17 Allergies Allergy/AdvReac Type Severity Reaction Status Date / Time sulfamethoxazole Allergy Unknown Verified 12/01/17 21:02 [From Septra] trimethoprim [From Janra] Allergy Unknown Verified 12/01/17 21:02 Review of Systems ROS Statement: Those systems with pertinent positive or pertinent negative responses have been documented in the HPI. ROS Other: All systems not noted in ROS Statement are negative. Past Medical History Past Medical History: GERD/Reflux, Seizure Disorder Additional Past Medical History / Comment(s): stomach ulcers, hypoglycemia, History of Any Multi-Drug Resistant Organisms: None Reported Past Surgical History: Appendectomy, Tonsillectomy Additional Past Surgical History / Comment(s): tubes in ears Past Psychological History: ADD/ADHD, Depression Smoking Status: Former smoker Past Alcohol Use History: Occasional Past Drug Use History: None Reported General Exam Limitations: no limitations General appearance: alert, in no apparent distress, other (This is a well- developed, well-nourished adult female patient in no acute distress. Vital signs upon presentation are temperature 98.3F, pulse 64, respirations 18, blood pressure 113/75, pulse ox 98% on room air.) Eye exam: Present: normal appearance, PERRL, EOMI. Absent: scleral icterus, conjunctival injection, periorbital swelling ENT exam: Present: normal exam, normal oropharynx, mucous membranes moist, TM's normal bilaterally Neck exam: Present: normal inspection. Absent: tenderness, meningismus, lymphadenopathy Respiratory exam: Present: normal lung sounds bilaterally. Absent: respiratory distress, wheezes, rales, rhonchi, stridor, chest wall tenderness Cardiovascular Exam: Present: regular rate, normal rhythm, normal heart sounds. Absent: systolic murmur, diastolic murmur, rubs, gallop, clicks GI/Abdominal exam: Present: soft, normal bowel sounds. Absent: distended, tenderness, guarding, rebound, rigid External exam: Present: normal external exam Speculum exam: Present: vaginal discharge (white/yellow mild discharge). Absent : erythema, vaginal bleeding, foreign body, tissue, laceration By manual exam: Present: normal by manual exam. Absent: cervical motion tenderness, adnexal tenderness, adnexal mass Neurological exam: Present: alert, oriented X3, CN II-XII intact Psychiatric exam: Present: normal affect, normal mood Skin exam: Present: warm, dry, intact, normal color. Absent: rash Course Vital Signs 12/01/17 20:36 Temperature 98.3 F Pulse Rate 64 Respiratory 18 Rate Blood Pressure 113/75 O2 Sat by Pulse 98 Oximetry Medical Decision Making - Medical Decision Making 21-year-old female patient presented to the emergency department today for evaluation of "scratchy throat" and shortness of breath. Physical examination is unremarkable. Throat did appear erythematous but no evidence of tonsillar hypertrophy or exudate. Chest x-ray was obtained and showed no acute cardiopulmonary process. Patient also reported that she been having severe lower abdominal pain for the last 4 days. States that she is unable to feel her IUD strings. We did perform pelvic ultrasound which showed IUD in normal position with small cyst on the right ovary. Did obtain cultures which were sent for evaluation. Patient will be discharged at this time to follow-up with her primary care physician as well as her [employer] for further evaluation. Return parameters discussed in detail. She verbalizes understanding and agrees with this plan. - Lab Data Result diagrams: 12/01/17 21:20 12/01/17 21:20 Lab Results 12/01/17 12/01/17 12/01/17 Range/Units 21:20 21:20 21:20 WBC 8.1 (3.8-10.6) k/uL RBC 4.59 (3.80-5.40) m/uL Hgb 14.3 (11.4-16.0) gm/dL Hct 41.7 (34.0-46.0) % MCV 90.7 (80.0-100.0) fL MCH 31.1 (25.0-35.0) pg MCHC 34.3 (31.0-37.0) g/dL RDW 12.7 (11.5-15.5) % Plt Count 234 (150-450) k/uL Neutrophils % 57 % Lymphocytes % 33 % Monocytes % 5 % Eosinophils % 2 % Basophils % 0 % Neutrophils # 4.6 (1.3-7.7) k/uL Lymphocytes # 2.7 (1.0-4.8) k/uL Monocytes # 0.4 (0-1.0) k/uL Eosinophils # 0.2 (0-0.7) k/uL Basophils # 0.0 (0-0.2) k/uL D-Dimer 0.20 (<0.60) mg/L FEU Sodium 140 (137-145) mmol/L Potassium 4.2 (3.5-5.1) mmol/L Chloride 106 (98-107) mmol/L Carbon Dioxide 26 (22-30) mmol/L Anion Gap 8 mmol/L BUN 16 (7-17) mg/dL Creatinine 0.70 (0.52-1.04) mg/dL Est GFR (CKD-EPI)AfAm >90 (>60 ml/min/1.73 sqM) Est GFR (CKD-EPI)NonAf >90 (>60 ml/min/1.73 sqM) Glucose 87 (74-99) mg/dL Calcium 8.9 (8.4-10.2) mg/dL Total Bilirubin 0.1 L (0.2-1.3) mg/dL AST 19 (14-36) U/L ALT 42 (9-52) U/L Alkaline Phosphatase 53 (38-126) U/L Total Protein 5.9 L (6.3-8.2) g/dL Albumin 3.6 (3.5-5.0) g/dL Amylase 33 (30-110) U/L Lipase 63 (23-300) U/L Urine Color Urine Appearance (Clear) Urine pH (5.0-8.0) Ur Specific [place] (1.001-1.035) Urine Protein (Negative) Urine Glucose (UA) (Negative) Urine Ketones (Negative) Urine Blood (Negative) Urine Nitrite (Negative) Urine Bilirubin (Negative) Urine Urobilinogen (<2.0) mg/dL Ur Leukocyte Esterase (Negative) Urine RBC (0-5) /hpf Urine WBC (0-5) /hpf Ur Squamous Epith Cells (0-4) /hpf Amorphous Sediment (None) /hpf Urine Bacteria (None) /hpf Urine Mucus (None) /hpf Urine HCG, Qual (Not Detectd) Trichomonas Ag (Rapid) (Negative) 12/01/17 12/01/17 12/01/17 Range/Units 21:20 21:20 23:00 WBC (3.8-10.6) k/uL RBC (3.80-5.40) m/uL Hgb (11.4-16.0) gm/dL Hct (34.0-46.0) % MCV (80.0-100.0) fL MCH (25.0-35.0) pg MCHC (31.0-37.0) g/dL RDW (11.5-15.5) % Plt Count (150-450) k/uL Neutrophils % % Lymphocytes % % Monocytes % % Eosinophils % % Basophils % % Neutrophils # (1.3-7.7) k/uL Lymphocytes # (1.0-4.8) k/uL Monocytes # (0-1.0) k/uL Eosinophils # (0-0.7) k/uL Basophils # (0-0.2) k/uL D-Dimer (<0.60) mg/L FEU Sodium (137-145) mmol/L Potassium (3.5-5.1) mmol/L Chloride (98-107) mmol/L Carbon Dioxide (22-30) mmol/L Anion Gap mmol/L BUN (7-17) mg/dL Creatinine (0.52-1.04) mg/dL Est GFR (CKD-EPI)AfAm (>60 ml/min/1.73 sqM) Est GFR (CKD-EPI)NonAf (>60 ml/min/1.73 sqM) Glucose (74-99) mg/dL Calcium (8.4-10.2) mg/dL Total Bilirubin (0.2-1.3) mg/dL AST (14-36) U/L ALT (9-52) U/L Alkaline Phosphatase (38-126) U/L Total Protein (6.3-8.2) g/dL Albumin (3.5-5.0) g/dL Amylase (30-110) U/L Lipase (23-300) U/L Urine Color Yellow Urine Appearance Cloudy H (Clear) Urine pH 7.0 (5.0-8.0) Ur Specific [place] 1.026 (1.001-1.035) Urine Protein Trace H (Negative) Urine Glucose (UA) Negative (Negative) Urine Ketones Negative (Negative) Urine Blood Negative (Negative) Urine Nitrite Negative (Negative) Urine Bilirubin Negative (Negative) Urine Urobilinogen 3.0 (<2.0) mg/dL Ur Leukocyte Esterase Large H (Negative) Urine RBC 1 (0-5) /hpf Urine WBC 28 H (0-5) /hpf Ur Squamous Epith Cells 12 H (0-4) /hpf Amorphous Sediment Occasional H (None) /hpf Urine Bacteria Occasional H (None) /hpf Urine Mucus Few H (None) /hpf Urine HCG, Qual Not Detected (Not Detectd) Trichomonas Ag (Rapid) Negative (Negative) - Radiology Data Radiology results: report reviewed, image reviewed Transvaginal ultrasound of the pelvis was obtained. Report was reviewed in its entirety. Impression by Dr. Escobar shows IUD in good position. Small brain cyst. No evidence of ovarian torsion. Two-view x-ray of the chest was obtained. Report was reviewed in its entirety. Heart mediastinum are normal. Lungs are clear. Diaphragm is normal. Bony thorax appears normal. Impression by Dr. Escobar shows normal chest. Disposition Clinical Impression: Ovarian cyst, Upper respiratory infection Disposition: HOME SELF-CARE Condition: Good Is patient prescribed a controlled substance at d/c from ED?: No Referrals: Bharat Jain DO [Primary Care Provider] - 1-2 days
[2017-12-01 21:38] LABS: Amorphous Sediment,Urine Occasional /hpf; Appearance,Urine Cloudy (Clear); Bacteria,Urine Occasional /hpf; Bilirubin,Urine Negative (Negative); Blood,Urine Negative (Negative); Color,Urine Yellow; Glucose,Urine (UA) Negative (Negative); Ketones,Urine Negative (Negative); Leukocyte Esterase,Urine Large (Negative); Mucus,Urine Few /hpf; Nitrite,Urine Negative (Negative); Protein,Urine Trace (Negative); RBC,Urine 1 /hpf (0-5); Specific Gravity,Urine 1.026 (1.001-1.035); Squamous Epithelial Cell,Urine 12 /hpf (0-4); WBC,Urine 28 /hpf (0-5)
[2017-12-01 21:46] LABS: ALT 42 U/L (9-52); AST 19 U/L (14-36); Albumin 3.6 g/dL (3.5-5.0); Alkaline Phosphatase 53 U/L (38-126); Amylase 33 U/L (30-110); Anion Gap 8 mmol/L; Blood Urea Nitrogen 16 mg/dL (7-17); Calcium 8.9 mg/dL (8.4-10.2); Carbon Dioxide 26 mmol/L (22-30); Chloride 106 mmol/L (98-107); Glucose 87 mg/dL (74-99); Lipase 63 U/L (23-300); Potassium 4.2 mmol/L (3.5-5.1); Sodium 140 mmol/L (137-145); Total Bilirubin 0.1 mg/dL (0.2-1.3); Total Protein 5.9 g/dL (6.3-8.2)
[2017-12-01 21:49] LABS: Basophils % (A) 0 %; Eosinophils # (A) 0.2 k/uL (0-0.7); Eosinophils % (A) 2 %; HCT 41.7 % (34.0-46.0); HGB 14.3 gm/dL (11.4-16.0); Lymphocytes # (A) 2.7 k/uL (1.0-4.8); Lymphocytes % (A) 33 %; MCH 31.1 pg (25.0-35.0); MCHC 34.3 g/dL (31.0-37.0); MCV 90.7 fL (80.0-100.0); Mean Platelet Volume 6.9; Monocytes # (A) 0.4 k/uL (0-1.0); Monocytes % (A) 5 %; Neutrophils # (A) 4.6 k/uL (1.3-7.7); Neutrophils % (A) 57 %; Platelet Count 234 k/uL (150-450); RBC 4.59 m/uL (3.80-5.40); RDW 12.7 % (11.5-15.5); WBC 8.1 k/uL (3.8-10.6)
--- NOTE | 2017-12-01 22:14 | XR ---
EXAMINATION TYPE: XR chest 2V DATE OF EXAM: 12/01/2017 COMPARISON: 03/30/2007 HISTORY: Chest pain TECHNIQUE: Frontal and lateral views of the chest are obtained. FINDINGS: Heart and mediastinum are normal. Lungs are clear. Diaphragm is normal. Bony thorax appear s normal. IMPRESSION: Normal chest
--- NOTE | 2017-12-02 01:16 | US ---
EXAMINATION TYPE: US transvaginal DATE OF EXAM: 12/01/2017 COMPARISON: NONE CLINICAL HISTORY: Pain/evaluate IUD. Pain IUD placement. TECHNIQUE: Transvaginal (TV). EXAM MEASUREMENTS: Uterus: 7.0 x 4.3 x 6.2 cm Endometrial Stripe: 0.31 cm Right Ovary: 2.6 x 2.2 x 2.5 cm Left Ovary: 2.9 x 1.9 x 2.3 cm 1. Uterus: Anteverted wnl 2. Endometrium: wnl 3. Right Ovary: Cystic area seen measuring1.6 x 1.4 x 2.0 cm. 4. Left Ovary: wnl Spectral, color and waveform doppler imaging shows good arterial and venous flow within the ovaries ; there is no evidence for ovarian torsion. 5. Bilateral Adnexa: wnl 6. Posterior cul-de-sac: wnl Cystic area seen right ovary measuring 1.6 x 1.4 x 2.0 cm. IMPRESSION: IUD appears to be in good position. Small ovarian cysts. No evidence of ovarian torsion.
[2017-12-03 14:31] LABS: C. trachomatis,PCR Negative (Neg,Equiv); Chlamydia trachomatis Source Vagina; N. gonorrhoeae,PCR Negative (Neg,Equiv); Neisseria Source Vagina
== END 2017-12-02 00:05 | disposition home or self-care (01) ==
LOC: EC 20:34
DX: N83.201 Unspecified ovarian cyst, right side (principal); J06.9 Acute upper respiratory infection, unspecified; G40.909 Epilepsy, unspecified, not intractable, without status epilepticus; Z90.49 Acquired absence of other specified parts of digestive tract; Z90.89 Acquired absence of other organs; Z87.891 Personal history of nicotine dependence; Z79.899 Other long term (current) drug therapy; Z88.2 Allergy status to sulfonamides
CPT/HCPCS: 36415; 71046; 76830; 80053; 81001; 81025; 82150; 83690; 85025; 85379; 87070; 87086; 87205; 87491; 87591; 87808; 93975; 96360; 99285

== ENCOUNTER 2018-03-02 19:05 | Emergency (ER) | payer OTHER ==
[2018-03-02 19:54] VITALS: BP 126/84; PULSE 91; RESP 16; TEMP 98.8
--- NOTE | 2018-03-02 20:22 | ED ---
URI HPI - General Chief Complaint: Upper Respiratory Infection Stated Complaint: Cough Time Seen by Provider: 03/02/18 19:57 Source: patient, RN notes reviewed Mode of arrival: ambulatory Limitations: no limitations - History of Present Illness Initial Comments: This is a 22-year-old female who presents to the emergency department with chief complaint of cough and sore throat. Patient states that she has had a nonproductive cough and sore throat for the past one week. The cough became productive last night and patient is coughing up green sputum. She denies any difficulty breathing. Denies fevers or chills. Denies runny nose or ear pain. She states that she is a nonsmoker and does not have asthma. - Related Data Home Medications Medication Instructions Recorded Confirmed Ibuprofen [Motrin Ib] 600 mg PO Q6H PRN 12/01/17 03/02/18 levETIRAcetam [Keppra] 2,000 mg PO BID 12/01/17 03/02/18 Allergies Allergy/AdvReac Type Severity Reaction Status Date / Time sulfamethoxazole Allergy Unknown Verified 03/02/18 19:54 [From Septra] trimethoprim [From Septra] Allergy Unknown Verified 03/02/18 19:54 Review of Systems ROS Statement: Those systems with pertinent positive or pertinent negative responses have been documented in the HPI. ROS Other: All systems not noted in ROS Statement are negative. Past Medical History Past Medical History: GERD/Reflux, Seizure Disorder Additional Past Medical History / Comment(s): stomach ulcers, hypoglycemia, History of Any Multi-Drug Resistant Organisms: None Reported Past Surgical History: Appendectomy, Tonsillectomy Additional Past Surgical History / Comment(s): tubes in ears Past Psychological History: ADD/ADHD, Depression Smoking Status: Former smoker Past Alcohol Use History: Occasional Past Drug Use History: None Reported General Exam - General Exam Comments Initial Comments: General: Awake and alert, well-developed; in no apparent distress. HEENT: Head atraumatic, normocephalic. Pupils are equal, round and reactive to light. Extraocular movements intact. Oropharynx moist with mild erythema. No tonsillar enlargement or exudates. Uvula is midline. Neck: Supple. Normal ROM. Cardiovascular: Regular rate and rhythm. No murmurs, rubs or gallops. Chest symmetrical. Respiratory: Lungs clear to auscultation bilaterally. No wheezes, rales or rhonchi. Normal respiratory effort with no use of accessory muscles. Musculoskeletal: Normal ROM, no tenderness bilateral upper and lower extremities. Ambulating normally. Skin: [place], warm and dry without rashes or lesions. Neurological: Alert and oriented x3. CN II-XII grossly intact. Speech is fluent and answers are appropriate. No focal neuro deficits. Psychiatric: Normal mood and affect. No overt signs of depression or anxiety noted. Limitations: no limitations Course Vital Signs 03/02/18 19:50 Temperature 98.8 F Pulse Rate 91 Respiratory 16 Rate Blood Pressure 126/84 O2 Sat by Pulse 95 Oximetry Medical Decision Making - Medical Decision Making This is a 22-year-old female who presents to the emergency department with chief complaint of cough and sore throat 1 week. Patient reports a nonproductive cough that became productive of green sputum last evening. Denies any fevers or chills. Lungs clear to auscultation bilaterally. A chest x-ray was performed which revealed no acute abnormalities. Patient is a nonsmoker and has no history of asthma or other pulmonary disorders. Likely suffering from an upper respiratory infection. Recommended symptomatic treatment. Patient's vital signs have been stable and she is in no acute distress. She will be discharged home at this time. She is in agreement and voices understanding. All questions were answered. - Radiology Data Radiology results: report reviewed Chest x-ray impression: No acute process. Disposition Clinical Impression: Upper respiratory infection Disposition: HOME SELF-CARE Condition: Good Instructions: Upper Respiratory Infection (ED) Additional Instructions: Please follow up with primary care provider within 1-2 days. Return to emergency department if symptoms should worsen or any concerns arise. Is patient prescribed a controlled substance at d/c from ED?: No Referrals: Bharat Jain DO [Primary Care Provider] - 1-2 days Time of Disposition: 21:06
--- NOTE | 2018-03-02 21:02 | XR ---
EXAMINATION: XR chest 2V DATE AND TIME: 03/02/2018 8:38 PM CLINICAL INDICATION: cough TECHNIQUE: PA and lateral COMPARISON: 12/01/2017 FINDINGS: The lungs are clear. The pleural spaces are negative. The cardiac silhouette is not enlarged. The remainder of the mediastinal silhouette is unremarkable. The skeletal structures and soft tissues are negative for acute findings. IMPRESSION: NO ACUTE PROCESS.
== END 2018-03-02 21:12 | disposition home or self-care (01) ==
LOC: EC 19:05
DX: J06.9 Acute upper respiratory infection, unspecified (principal); G40.909 Epilepsy, unspecified, not intractable, without status epilepticus; Z88.1 Allergy status to other antibiotic agents; Z88.2 Allergy status to sulfonamides; Z79.899 Other long term (current) drug therapy; Z87.891 Personal history of nicotine dependence
CPT/HCPCS: 71046; 99283

== ENCOUNTER 2018-09-26 07:24 | Emergency (ER) | payer OTHER ==
[2018-09-26] MEDS ORDERED: ONDANSETRON ODT 4 MG TAB PO STA (07:45)
[2018-09-26] MEDS ORDERED: ACETAMINOPHEN TAB 325 MG TAB PO STA (07:53)
--- NOTE | 2018-09-26 07:59 | ED ---
General Adult HPI - General Chief complaint: Upper Respiratory Infection Stated complaint: pain all over, sore throat Time Seen by Provider: 09/26/18 07:40 Source: patient Mode of arrival: ambulatory Limitations: no limitations - History of Present Illness Initial comments: Patient is a 22-year-old female presenting to the emergency department with flu like symptoms. Patient states symptoms started 2 days ago with a sore throat and progressed to a productive cough with green sputum. Patient reports clear, bilateral rhinorrhea. Patient reports maxillary and frontal sinus tenderness and fullness. Patient reports fever chills or night sweats. Patient reports lightheadedness, dizziness, headache. Patient reports nausea but denies vomiting or diarrhea. Patient denies any ear pain, chest tightness or chest pain.. Patient denies being around sick people or history of asthma. Patient reports taking ibuprofen for pain relief with minimal improvement. Patient does not have flu vaccination this season. - Related Data Home Medications Medication Instructions Recorded Confirmed Ibuprofen [Motrin Ib] 600 mg PO Q6H PRN 12/01/17 03/02/18 levETIRAcetam [Keppra] 2,000 mg PO BID 12/01/17 03/02/18 Previous Rx's Medication Instructions Recorded Ibuprofen/Pseudoephedrine HCl 1 each PO Q6HR PRN #20 tablet 09/26/18 [Advil Cold & Sinus Caplet] predniSONE 0 mg PO DIRECTED #20 tab 09/26/18 Allergies Allergy/AdvReac Type Severity Reaction Status Date / Time sulfamethoxazole Allergy Unknown Verified 09/26/18 07:34 [From Septra] trimethoprim [From Septra] Allergy Unknown Verified 09/26/18 07:34 Review of Systems ROS Statement: Those systems with pertinent positive or pertinent negative responses have been documented in the HPI. ROS Other: All systems not noted in ROS Statement are negative. Past Medical History Past Medical History: GERD/Reflux, Seizure Disorder Additional Past Medical History / Comment(s): stomach ulcers, hypoglycemia, History of Any Multi-Drug Resistant Organisms: None Reported Past Surgical History: Appendectomy, Tonsillectomy Additional Past Surgical History / Comment(s): tubes in ears Past Psychological History: ADD/ADHD, Depression Smoking Status: Former smoker Past Alcohol Use History: Occasional Past Drug Use History: None Reported General Exam Limitations: no limitations General appearance: alert, in no apparent distress Eye exam: Present: normal appearance, PERRL, EOMI. Absent: scleral icterus, conjunctival injection, nystagmus, periorbital swelling, periorbital tenderness Pupils: Present: normal accommodation ENT exam: Present: mucous membranes moist, TM's normal bilaterally (Bilateral wax impaction), normal external ear exam Expanded Mouth exam: Present: normal external inspection, other (Peritonsillar erythema). Absent: drooling, trismus, muffled voice Teeth exam: Present: normal inspection Neck exam: Present: tenderness, full ROM, lymphadenopathy (Bilateral submandibular) Respiratory exam: Present: normal lung sounds bilaterally. Absent: respiratory distress Cardiovascular Exam: Present: regular rate, normal rhythm, normal heart sounds GI/Abdominal exam: Present: soft. Absent: distended, tenderness Neurological exam: Present: alert, oriented X3 Psychiatric exam: Present: normal affect, normal mood Course Vital Signs 09/26/18 09/26/18 09/26/18 07:33 07:53 10:07 Temperature 98.7 F 100.1 F H Pulse Rate 91 94 Respiratory 18 20 18 Rate Blood Pressure 121/75 100/63 O2 Sat by Pulse 98 100 Oximetry Medical Decision Making - Medical Decision Making Patient 2-year-old female presenting to the emergency department with flulike symptoms. Patient was given Zofran for nausea, Tylenol for body aches and flu swab. Chest is x-ray is negative. Patient will be discharged with a taper course of steroids. Patient prescribed Advil Cold and Sinus for a flulike symptoms. Patient is to follow with primary care. Patient is to return to emergency department if symptoms worsen. Case discussed with physician. - Lab Data Lab Results 09/26/18 Range/Units 07:51 Influenza Type A RNA Not Detected (Not Detectd) Influenza Type B (PCR) Not Detected (Not Detectd) Disposition Clinical Impression: Common cold Disposition: HOME SELF-CARE Condition: Stable Instructions (If sedation given, give patient instructions): Upper Respiratory Infection (ED) Additional Instructions: Please take prescribed medication as advised. Please follow up with primary care. Please return to emergency department symptoms worsen. Prescriptions: Ibuprofen/Pseudoephedrine HCl [Advil Cold & Sinus Caplet] 1 each PO Q6HR PRN #20 tablet PRN Reason: Flu Symptoms predniSONE 0 mg PO DIRECTED #20 tab Is patient prescribed a controlled substance at d/c from ED?: No Referrals: Bharat Jain DO [Primary Care Provider] - 1-2 days Time of Disposition: 10:11
--- NOTE | 2018-09-26 09:14 | XR ---
EXAMINATION TYPE: XR chest 2V DATE OF EXAM: 09/26/2018 HISTORY: Cough/pain. REFERENCE: Previous study dated 03/02/2018. FINDINGS: The lungs remain clear. Pleural space are clear. The heart is not enlarged. IMPRESSION: NORMAL CHEST.
[2018-09-26 10:08] VITALS: BP 100/63; PULSE 94; RESP 18; TEMP 100.1
== END 2018-09-26 10:34 | disposition home or self-care (01) ==
LOC: EC 07:24
DX: J00 Acute nasopharyngitis [common cold] (principal); G40.909 Epilepsy, unspecified, not intractable, without status epilepticus; Z87.891 Personal history of nicotine dependence; Z79.899 Other long term (current) drug therapy; Z88.1 Allergy status to other antibiotic agents; Z88.2 Allergy status to sulfonamides
CPT/HCPCS: 71046; 87502; 99283

== ENCOUNTER 2019-01-10 18:30 | Emergency (ER) | payer OTHER ==
[2019-01-10 19:12] VITALS: RESP 18
--- NOTE | 2019-01-10 20:00 | ED ---
Weakness HPI - General Chief complaint: Weakness Stated complaint: weakness Time Seen by Provider: 01/10/19 19:56 Source: patient, RN notes reviewed, old records reviewed Mode of arrival: ambulatory Limitations: no limitations - History of Present Illness Initial comments: 25 this is a 23-year-old female the ER for evaluation. She is splinted for evaluation of which he states his weakness although upon presentation to the room she states that she really here for STD check, patient is having discharge for about 2 weeks, she is sexually active. Does not think she can be . No abdominal pain. No nausea vomiting, no fevers. No prior history of STD STI MD Complaint: generalized weakness -: week(s) (2 weeks of vaginal discharge) Severity: mild Consistency: constant Improves with: none Worsens with: none Associated Symptoms: denies other symptoms - Related Data Home Medications Medication Instructions Recorded Confirmed levETIRAcetam [Keppra] 2,000 mg PO BID 12/01/17 01/10/19 lamoTRIgine [LaMICtal] 100 mg PO BID 01/10/19 01/10/19 Allergies Allergy/AdvReac Type Severity Reaction Status Date / Time sulfamethoxazole Allergy Unknown Verified 01/10/19 20:18 [From ] Childhood trimethoprim [From ] Allergy Unknown Verified 01/10/19 20:18 Childhood Review of Systems ROS Statement: Those systems with pertinent positive or pertinent negative responses have been documented in the HPI. ROS Other: All systems not noted in ROS Statement are negative. Past Medical History Past Medical History: GERD/Reflux, Seizure Disorder Additional Past Medical History / Comment(s): stomach ulcers, hypoglycemia, History of Any Multi-Drug Resistant Organisms: None Reported Past Surgical History: Adenoidectomy, Ear Surgery, Tonsillectomy Additional Past Surgical History / Comment(s): tubes in ears Past Psychological History: ADD/ADHD, Depression Smoking Status: Current every day smoker Past Alcohol Use History: Occasional Past Drug Use History: Marijuana General Exam Limitations: no limitations General appearance: alert, in no apparent distress Head exam: Present: atraumatic, normocephalic, normal inspection Eye exam: Present: normal appearance, PERRL, EOMI. Absent: scleral icterus, conjunctival injection, periorbital swelling ENT exam: Present: normal exam, mucous membranes moist Neck exam: Present: normal inspection. Absent: tenderness, meningismus, lymphadenopathy Respiratory exam: Present: normal lung sounds bilaterally. Absent: respiratory distress, wheezes, rales, rhonchi, stridor Cardiovascular Exam: Present: regular rate, normal rhythm, normal heart sounds. Absent: systolic murmur, diastolic murmur, rubs, gallop, clicks GI/Abdominal exam: Present: soft, normal bowel sounds. Absent: distended, tend erness, guarding, rebound, rigid Extremities exam: Present: normal inspection, full ROM, normal capillary refill. Absent: tenderness, pedal edema, joint swelling, calf tenderness Back exam: Present: normal inspection Neurological exam: Present: alert, oriented X3, CN II-XII intact Psychiatric exam: Present: normal affect, normal mood Skin exam: Present: warm, dry, intact, normal color. Absent: rash Course Vital Signs 01/10/19 19:07 Temperature 98.0 F Pulse Rate 72 Respiratory 18 Rate Blood Pressure 90/53 O2 Sat by Pulse 98 Oximetry Medical Decision Making - Medical Decision Making 23 female the ER for evaluation positive vaginal discharge we'll culture urine for STD. We'll treat patient for STD. Patient can be discharged - Lab Data Lab Results 01/10/19 01/10/19 Range/Units 19:12 19:12 Urine Color Yellow Urine Appearance Clear (Clear) Urine pH 5.5 (5.0-8.0) Ur Specific [place] 1.020 (1.001-1.035) Urine Protein Negative (Negative) Urine Glucose (UA) Negative (Negative) Urine Ketones Negative (Negative) Urine Blood Negative (Negative) Urine Nitrite Negative (Negative) Urine Bilirubin Negative (Negative) Urine Urobilinogen <2.0 (<2.0) mg/dL Ur Leukocyte Esterase Moderate H (Negative) Urine RBC 1 (0-5) /hpf Urine WBC 1 (0-5) /hpf Ur Squamous Epith Cells 1 (0-4) /hpf Urine Bacteria Rare H (None) /hpf Urine Mucus Occasional H (None) /hpf Urine HCG, Qual Not Detected (Not Detectd) Disposition Clinical Impression: Weakness Disposition: HOME SELF-CARE Condition: Good Instructions (If sedation given, give patient instructions): Weakness (ED) Is patient prescribed a controlled substance at d/c from ED?: No Referrals: Bharat aJin DO [Primary Care Provider] - 1-2 days
[2019-01-10 20:03] LABS: Appearance,Urine Clear (Clear); Bacteria,Urine Rare /hpf; Bilirubin,Urine Negative (Negative); Blood,Urine Negative (Negative); Color,Urine Yellow; Glucose,Urine (UA) Negative (Negative); Ketones,Urine Negative (Negative); Leukocyte Esterase,Urine Moderate (Negative); Mucus,Urine Occasional /hpf; Nitrite,Urine Negative (Negative); PH, Urine 5.5 (5.0-8.0); Protein,Urine Negative (Negative); RBC,Urine 1 /hpf (0-5); Squamous Epithelial Cell,Urine 1 /hpf (0-4); Urobilinogen,Urine <2.0 mg/dL (<2.0); WBC,Urine 1 /hpf (0-5)
[2019-01-10] MEDS ORDERED: ONDANSETRON ODT 4 MG TAB PO STA (20:06)
[2019-01-10] MEDS ORDERED: ACETAMINOPHEN TAB 500 MG TAB PO STA (20:06)
[2019-01-10] MEDS ORDERED: IBUPROFEN 800 MG TAB PO STA (20:06)
[2019-01-10] MEDS ORDERED: cefTRIAXone 250 MG VIAL IM STA (20:12)
[2019-01-10] MEDS ORDERED: metroNIDAZOLE 500 MG TAB PO STA (20:12)
[2019-01-10] MEDS ORDERED: AZITHROMYCIN 500 MG TAB PO STA (20:12)
[2019-01-10 21:04] VITALS: BP 106/64; PULSE 67; TEMP 98
[2019-01-11 14:31] LABS: C. trachomatis,PCR Negative (Neg,Equiv); Chlamydia trachomatis Source Urine
[2019-01-11 14:33] LABS: N. gonorrhoeae,PCR Negative (Neg,Equiv); Neisseria Source Urine
== END 2019-01-10 21:06 | disposition home or self-care (01) ==
LOC: EC 18:30
DX: R53.1 Weakness (principal); N89.8 Other specified noninflammatory disorders of vagina; G40.909 Epilepsy, unspecified, not intractable, without status epilepticus; F17.200 Nicotine dependence, unspecified, uncomplicated; Z79.899 Other long term (current) drug therapy; Z88.1 Allergy status to other antibiotic agents; Z88.2 Allergy status to sulfonamides
CPT/HCPCS: 81001; 81025; 87491; 87591; 99285; 96372; J0696

== ENCOUNTER 2019-12-12 02:23 | Emergency (ER) | payer OTHER ==
[2019-12-12] MEDS ORDERED: MORPHINE SULFATE 4 MG/ML SYRINGE IV STA (02:58)
[2019-12-12] MEDS ORDERED: ONDANSETRON 4 MG/2 ML VIAL IVP STA (02:58)
[2019-12-12] MEDS ORDERED: SODIUM CHLORIDE 0.9% 500 ML 500 ML IV STA (02:58)
[2019-12-12 03:06] LABS: Basophils # (A) 0.1 k/uL (0-0.2); Basophils % (A) 1 %; Eosinophils # (A) 0.3 k/uL (0-0.7); Eosinophils % (A) 3 %; HCT 42.3 % (34.0-46.0); Lymphocytes # (A) 3.2 k/uL (1.0-4.8); Lymphocytes % (A) 31 %; MCH 30.2 pg (25.0-35.0); MCHC 33.1 g/dL (31.0-37.0); MCV 91.4 fL (80.0-100.0); Mean Platelet Volume 7.6; Monocytes # (A) 0.5 k/uL (0-1.0); Monocytes % (A) 5 %; Neutrophils # (A) 6.1 k/uL (1.3-7.7); Neutrophils % (A) 59 %; Platelet Count 258 k/uL (150-450); RBC 4.63 m/uL (3.80-5.40); RDW 12.4 % (11.5-15.5); WBC 10.4 k/uL (3.8-10.6)
--- NOTE | 2019-12-12 03:20 | ED ---
General Adult HPI - General Chief complaint: Abdominal Pain Stated complaint: Cramps,Vomiting Time Seen by Provider: 12/12/19 02:27 Source: patient, RN notes reviewed, old records reviewed Mode of arrival: ambulatory - History of Present Illness Initial comments: 23-year-old female presenting for evaluation of abdominal pain. Patient has generalized crampy abdominal pain both right and left-sided as well as suprapubic. She states the pain began during intercourse. She did have one episode of vomiting secondary to the pain. She reports vaginal bleeding, uncertain of her last menstrual cycle. She states she had one small blood clot, no active bleeding after this blood clot. She states she's had normal bowel movements. No fever. - Related Data Home Medications Medication Instructions Recorded Confirmed levETIRAcetam [Keppra] 2,000 mg PO BID 12/01/17 01/10/19 lamoTRIgine [LaMICtal] 100 mg PO BID 01/10/19 01/10/19 Previous Rx's Medication Instructions Recorded Doxycycline [Vibramycin] 100 mg PO BID 14 Days #28 capsule 12/12/19 Allergies Allergy/AdvReac Type Severity Reaction Status Date / Time sulfamethoxazole Allergy Unknown Verified 12/12/19 02:42 [From Septra] Childhood trimethoprim [From Septra] Allergy Unknown Verified 12/12/19 02:42 Childhood Review of Systems ROS Statement: Those systems with pertinent positive or pertinent negative responses have been documented in the HPI. ROS Other: All systems not noted in ROS Statement are negative. Past Medical History Past Medical History: GERD/Reflux, Seizure Disorder Additional Past Medical History / Comment(s): stomach ulcers, hypoglycemia, ov gee cyst History of Any Multi-Drug Resistant Organisms: None Reported Past Surgical History: Adenoidectomy, Ear Surgery, Tonsillectomy Additional Past Surgical History / Comment(s): tubes in ears Past Psychological History: ADD/ADHD, Depression Smoking Status: Current some day smoker Past Alcohol Use History: Occasional Past Drug Use History: Marijuana General Exam General appearance: alert, in no apparent distress Head exam: Present: atraumatic, normocephalic Eye exam: Present: normal appearance, PERRL ENT exam: Present: normal exam Neck exam: Present: normal inspection. Absent: tenderness, meningismus Respiratory exam: Present: normal lung sounds bilaterally. Absent: respiratory distress, wheezes Cardiovascular Exam: Present: regular rate, normal rhythm GI/Abdominal exam: Present: soft, tenderness (Minimal bilateral lower quadrant tenderness and suprapubic tenderness). Absent: distended, guarding, rebound External exam: Present: normal external exam. Absent: erythema Speculum exam: Present: vaginal discharge By manual exam: Present: cervical motion tenderness, other (Abnormal cervix, 1 cm irregularity on the anterior cervix.) Extremities exam: Present: normal inspection, normal capillary refill. Absent: pedal edema Back exam: Present: normal inspection Neurological exam: Present: alert, oriented X3, CN II-XII intact. Absent: motor sensory deficit Psychiatric exam: Present: normal affect, normal mood Course Vital Signs 12/12/19 02:39 Temperature 98.6 F Pulse Rate 72 Respiratory 19 Rate Blood Pressure 129/97 O2 Sat by Pulse 97 Oximetry - Reevaluation(s) Reevaluation #1: 12/12/19 04:19 Patient reevaluated, resting comfortable, symptoms significantly improved. Eager for discharge. Medical Decision Making - Medical Decision Making 23-year-old female with lower abdominal pain with intercourse and one episode of vomiting. Pain is predominantly midline not localizing to one side or the other. On exam she has some suprapubic tenderness as well as cervical motion tenderness. She is uncertain about her risk for STDs. There is no bleeding on exam. She has a normal CBC, normal CMP x-rays negative for obstruction or intraperitoneal free air. She will be treated for pelvic inflammatory disease given the cervical motion tenderness and discharge she can be treated as an outpatient. She will follow-up with her HOSTESS regarding pelvic pain with intercourse, PID, and abnormal cervix on exam. - Lab Data Result diagrams: 12/12/19 02:59 12/12/19 02:59 Lab Results 12/12/19 12/12/19 12/12/19 Range/Units 02:59 02:59 02:59 WBC 10.4 (3.8-10.6) k/uL RBC 4.63 (3.80-5.40) m/uL Hgb 14.0 (11.4-16.0) gm/dL Hct 42.3 (34.0-46.0) % MCV 91.4 (80.0-100.0) fL MCH 30.2 (25.0-35.0) pg MCHC 33.1 (31.0-37.0) g/dL RDW 12.4 (11.5-15.5) % Plt Count 258 (150-450) k/uL Neutrophils % 59 % Lymphocytes % 31 % Monocytes % 5 % Eosinophils % 3 % Basophils % 1 % Neutrophils # 6.1 (1.3-7.7) k/uL Lymphocytes # 3.2 (1.0-4.8) k/uL Monocytes # 0.5 (0-1.0) k/uL Eosinophils # 0.3 (0-0.7) k/uL Basophils # 0.1 (0-0.2) k/uL PT 9.9 (9.0-12.0) sec INR 1.0 (<1.2) APTT 24.5 (22.0-30.0) sec Sodium 136 L (137-145) mmol/L Potassium 3.9 (3.5-5.1) mmol/L Chloride 106 (98-107) mmol/L Carbon Dioxide 22 (22-30) mmol/L Anion Gap 8 mmol/L BUN 15 (7-17) mg/dL Creatinine 0.75 (0.52-1.04) mg/dL Est GFR (CKD-EPI)AfAm >90 (>60 ml/min/1.73 sqM) Est GFR (CKD-EPI)NonAf >90 (>60 ml/min/1.73 sqM) Glucose 100 H (74-99) mg/dL Plasma Lactic Acid [place] (0.7-2.0) mmol/L Calcium 9.4 (8.4-10.2) mg/dL Total Bilirubin 0.3 (0.2-1.3) mg/dL AST 25 (14-36) U/L ALT 31 (4-34) U/L Alkaline Phosphatase 62 (38-126) U/L Total Protein 7.1 (6.3-8.2) g/dL Albumin 4.3 (3.5-5.0) g/dL Amylase 66 (30-110) U/L Lipase 82 (23-300) U/L Urine Color Urine Appearance (Clear) Urine pH (5.0-8.0) Ur Specific [place] (1.001-1.035) Urine Protein (Negative) Urine Glucose (UA) (Negative) Urine Ketones (Negative) Urine Blood (Negative) Urine Nitrite (Negative) Urine Bilirubin (Negative) Urine Urobilinogen (<2.0) mg/dL Ur Leukocyte Esterase (Negative) Urine RBC (0-5) /hpf Urine WBC (0-5) /hpf Ur Squamous Epith Cells (0-4) /hpf Urine Mucus (None) /hpf Urine HCG, Qual (Not Detectd) 12/12/19 12/12/19 12/12/19 Range/Units 02:59 03:14 03:14 WBC (3.8-10.6) k/uL RBC (3.80-5.40) m/uL Hgb (11.4-16.0) gm/dL Hct (34.0-46.0) % MCV (80.0-100.0) fL MCH (25.0-35.0) pg MCHC (31.0-37.0) g/dL RDW (11.5-15.5) % Plt Count (150-450) k/uL Neutrophils % % Lymphocytes % % Monocytes % % Eosinophils % % Basophils % % Neutrophils # (1.3-7.7) k/uL Lymphocytes # (1.0-4.8) k/uL Monocytes # (0-1.0) k/uL Eosinophils # (0-0.7) k/uL Basophils # (0-0.2) k/uL PT (9.0-12.0) sec INR (<1.2) APTT (22.0-30.0) sec Sodium (137-145) mmol/L Potassium (3.5-5.1) mmol/L Chloride (98-107) mmol/L Carbon Dioxide (22-30) mmol/L Anion Gap mmol/L BUN (7-17) mg/dL Creatinine (0.52-1.04) mg/dL Est GFR (CKD-EPI)AfAm (>60 ml/min/1.73 sqM) Est GFR (CKD-EPI)NonAf (>60 ml/min/1.73 sqM) Glucose (74-99) mg/dL Plasma Lactic Acid [place] 0.7 (0.7-2.0) mmol/L Calcium (8.4-10.2) mg/dL Total Bilirubin (0.2-1.3) mg/dL AST (14-36) U/L ALT (4-34) U/L Alkaline Phosphatase (38-126) U/L Total Protein (6.3-8.2) g/dL Albumin (3.5-5.0) g/dL Amylase (30-110) U/L Lipase (23-300) U/L Urine Color Yellow Urine Appearance Clear (Clear) Urine pH 5.5 (5.0-8.0) Ur Specific [place] 1.021 (1.001-1.035) Urine Protein Negative (Negative) Urine Glucose (UA) Negative (Negative) Urine Ketones Negative (Negative) Urine Blood Negative (Negative) Urine Nitrite Negative (Negative) Urine Bilirubin Negative (Negative) Urine Urobilinogen <2.0 (<2.0) mg/dL Ur Leukocyte Esterase Moderate H (Negative) Urine RBC 2 (0-5) /hpf Urine WBC 3 (0-5) /hpf Ur Squamous Epith Cells 5 H (0-4) /hpf Urine Mucus Rare H (None) /hpf Urine HCG, Qual Not Detected (Not Detectd) Disposition Clinical Impression: Abdominal pain, PID (acute pelvic inflammatory disease) Disposition: HOME SELF-CARE Condition: Good Instructions (If sedation given, give patient instructions): Abdominal Pain (ED), Pelvic Inflammatory Disease (ED) Additional Instructions: These follow-up with your HOSTESS. Prescriptions: Doxycycline [Vibramycin] 100 mg PO BID 14 Days #28 capsule Is patient prescribed a controlled substance at d/c from ED?: No Referrals: Jorge Newman MD [Primary Care Provider] - 1-2 days Time of Disposition: 04:19
[2019-12-12 03:21] LABS: ALT 31 U/L (4-34); AST 25 U/L (14-36); African American GFR (CKD) >90 (>60 ml/min/1.73 sqM); Albumin 4.3 g/dL (3.5-5.0); Alkaline Phosphatase 62 U/L (38-126); Amylase 66 U/L (30-110); Anion Gap 8 mmol/L; Blood Urea Nitrogen 15 mg/dL (7-17); Calcium 9.4 mg/dL (8.4-10.2); Carbon Dioxide 22 mmol/L (22-30); Chloride 106 mmol/L (98-107); Glucose 100 mg/dL (74-99); Non-African American GFR(CKD) >90 (>60 ml/min/1.73 sqM); Potassium 3.9 mmol/L (3.5-5.1); Sodium 136 mmol/L (137-145); Total Bilirubin 0.3 mg/dL (0.2-1.3); Total Protein 7.1 g/dL (6.3-8.2)
[2019-12-12 03:21] LABS: Appearance,Urine Clear (Clear); Bilirubin,Urine Negative (Negative); Blood,Urine Negative (Negative); Color,Urine Yellow; Glucose,Urine (UA) Negative (Negative); Ketones,Urine Negative (Negative); Leukocyte Esterase,Urine Moderate (Negative); Mucus,Urine Rare /hpf; Nitrite,Urine Negative (Negative); PH, Urine 5.5 (5.0-8.0); Protein,Urine Negative (Negative); RBC,Urine 2 /hpf (0-5); Specific Gravity,Urine 1.021 (1.001-1.035); Squamous Epithelial Cell,Urine 5 /hpf (0-4); Urobilinogen,Urine <2.0 mg/dL (<2.0); WBC,Urine 3 /hpf (0-5)
[2019-12-12] MEDS ORDERED: KETOROLAC 30 MG/ML 1 ML VIAL IVP STA (03:40)
[2019-12-12 03:42] LABS: Partial Thromboplastin Time 24.5 sec (22.0-30.0); Prothrombin Time 9.9 sec (9.0-12.0)
--- NOTE | 2019-12-12 03:59 | XR ---
EXAMINATION TYPE: XR KUB DATE OF EXAM: 12/12/2019 COMPARISON: 05/02/2014 HISTORY: Abdominal pain TECHNIQUE: 2 views upright FINDINGS: There is no sign of intestinal obstruction or pneumoperitoneum. Fecal pattern is normal. Th ere is IUD noted. There are no pathologic calcifications over the kidneys. Lung bases are clear. Ther e is no sign of a mass. IMPRESSION: Nonacute abdomen. No adverse change.
[2019-12-12] MEDS ORDERED: cefTRIAXone 250 MG VIAL IM STA (04:16)
[2019-12-12 04:43] VITALS: BP 110/72; PULSE 64; RESP 18; TEMP 98
== END 2019-12-12 04:42 | disposition home or self-care (01) ==
LOC: EC 02:23
DX: N73.9 Female pelvic inflammatory disease, unspecified (principal); G40.909 Epilepsy, unspecified, not intractable, without status epilepticus; F32.9 Major depressive disorder, single episode, unspecified; F17.200 Nicotine dependence, unspecified, uncomplicated; Z88.2 Allergy status to sulfonamides; Z79.899 Other long term (current) drug therapy
CPT/HCPCS: 36415; 80053; 82150; 83605; 83690; 85025; 85610; 85730; 81001; 81025; 74018; 99284; 96374; 96375; 96372; 96361; J2405; J0696; J1885

== ENCOUNTER 2020-07-30 20:18 | Emergency (ER) | payer OTHER ==
[2020-07-30 20:35] VITALS: BP 130/79; PULSE 74; RESP 16; TEMP 98.3
[2020-07-30] MEDS ORDERED: ACETAMINOPHEN TAB 500 MG TAB PO STA (22:33)
[2020-07-30] MEDS ORDERED: IBUPROFEN 600 MG STARTER PACK 4 TAB BTL PO STA (22:33)
[2020-07-30] MEDS ORDERED: AMOXIC-POT CLAV 875MG STARTER PACK 2 TAB BTL PO STA (22:33)
[2020-07-30] MEDS ORDERED: dexAMETHasone 4 MG TAB PO STA (22:33)
[2020-07-30] MEDS ORDERED: AMOXIC-POT CLAV 875-125MG 1 EACH TAB PO STA (22:33)
[2020-07-30] MEDS ORDERED: IBUPROFEN 800 MG TAB PO STA (22:33)
--- NOTE | 2020-07-30 22:34 | ED ---
ENT HPI - General Chief complaint: ENT Stated complaint: Sore throat Time Seen by Provider: 07/30/20 22:16 Source: patient, RN notes reviewed, old records reviewed Mode of arrival: ambulatory Limitations: no limitations - History of Present Illness Initial comments: This is a 24-year-old female DF for evaluation patient has history of the patient coming in for sore throat hoarse voice and mild increased pain with swallowing. No fevers no chest pain no shortness of breath no other complaints patient is no sick contacts with no concern for coronavirus, again afebrile MD complaint: difficulty swallowing -: hour(s) Severity: mild Severity scale (1-10): 2 Quality: stabbing, aching Consistency: constant Improves with: none Worsens with: swallowing Context-Epistaxis: history of similar Context- Dental: other (History of the pain) Associated Symptoms: sore throat - Related Data Home Medications Medication Instructions Recorded Confirmed levETIRAcetam [Keppra] 2,000 mg PO BID 12/01/17 01/10/19 lamoTRIgine [LaMICtal] 100 mg PO BID 01/10/19 01/10/19 Previous Rx's Medication Instructions Recorded Doxycycline [Vibramycin] 100 mg PO BID 14 Days #28 capsule 12/12/19 Amoxic-Pot Clav 875-125Mg 1 tab PO Q12HR #20 tablet 07/30/20 [Augmentin 875-125] Allergies Allergy/AdvReac Type Severity Reaction Status Date / Time sulfamethoxazole Allergy Unknown Verified 07/30/20 20:35 [From ] Childhood trimethoprim [From Janra] Allergy Unknown Verified 07/30/20 20:35 Childhood Review of Systems ROS Statement: Those systems with pertinent positive or pertinent negative responses have been documented in the HPI. ROS Other: All systems not noted in ROS Statement are negative. Past Medical History Past Medical History: GERD/Reflux, Seizure Disorder Additional Past Medical History / Comment(s): stomach ulcers, hypoglycemia, ovarian cyst, PCOS History of Any Multi-Drug Resistant Organisms: None Reported Past Surgical History: Adenoidectomy, Ear Surgery, Tonsillectomy Additional Past Surgical History / Comment(s): tubes in ears Past Psychological History: ADD/ADHD, Depression Smoking Status: Current some day smoker, Vaper Past Alcohol Use History: Occasional Past Drug Use History: Marijuana General Exam Limitations: no limitations General appearance: alert, in no apparent distress Head exam: Present: atraumatic, normocephalic, normal inspection Eye exam: Present: normal appearance, PERRL, EOMI. Absent: scleral icterus, conjunctival injection, periorbital swelling ENT exam: Present: normal exam, mucous membranes moist Neck exam: Present: normal inspection. Absent: tenderness, meningismus, lymphadenopathy Respiratory exam: Present: normal lung sounds bilaterally. Absent: respiratory distress, wheezes, rales, rhonchi, stridor Cardiovascular Exam: Present: regular rate, normal rhythm, normal heart sounds. Absent: systolic murmur, diastolic murmur, rubs, gallop, clicks GI/Abdominal exam: Present: soft, normal bowel sounds. Absent: distended, tenderness, guarding, rebound, rigid Extremities exam: Present: normal inspection, full ROM, normal capillary refill. Absent: tenderness, pedal edema, joint swelling, calf tenderness Back exam: Present: normal inspection Neurological exam: Present: alert, oriented X3, CN II-XII intact Psychiatric exam: Present: normal affect, normal mood Skin exam: Present: warm, dry, intact, normal color. Absent: rash Course Vital Signs 07/30/20 20:32 Temperature 98.3 F Pulse Rate 74 Respiratory 16 Rate Blood Pressure 130/79 O2 Sat by Pulse 99 Oximetry - Reevaluation(s) Reevaluation #1: Medical record is reviewed Patient symptoms are improved here in the ER Patient informed results and questions have been answered Patient family feel comfortable for discharge Medical Decision Making - Medical Decision Making 24 female to the ER for evaluation patient Dese for evaluation regards to sore throat strep throat test is negative, patient does have orthopnea voice, consistent with pharyngitis will place on antibiotics and discharged home - Lab Data Lab Results 07/30/20 Range/Units 21:07 Group A Strep Rapid Negative (Negative) Disposition Clinical Impression: Acute laryngitis Disposition: HOME SELF-CARE Condition: Good Instructions (If sedation given, give patient instructions): Laryngitis (ED) Prescriptions: Amoxic-Pot Clav 875-125Mg [Augmentin 875-125] 1 tab PO Q12HR #20 tablet Is patient prescribed a controlled substance at d/c from ED?: No Referrals: Jorge Newman MD [Primary Care Provider] - 1-2 days
== END 2020-07-30 22:51 | disposition home or self-care (01) ==
LOC: EC 20:18
DX: J04.0 Acute laryngitis (principal); G40.909 Epilepsy, unspecified, not intractable, without status epilepticus; F32.9 Major depressive disorder, single episode, unspecified; F17.200 Nicotine dependence, unspecified, uncomplicated; F12.90 Cannabis use, unspecified, uncomplicated; Z90.09 Acquired absence of other part of head and neck
CPT/HCPCS: 87081; 87430; 99284; J8540

== ENCOUNTER → 2020-08-07 | Outpatient (CLI) | payer OTHER ==
--- NOTE | 2020-08-08 08:32 | XR ---
EXAMINATION TYPE: XR knee complete RT DATE OF EXAM: 08/07/2020 COMPARISON: NONE HISTORY: Pain TECHNIQUE: Three views are submitted. FINDINGS: Joint spaces are preserved. Osseous structures are intact. No acute fracture seen. IMPRESSION: 1. No acute fracture or dislocation.
== END ==
LOC: RADXRMAIN 16:28
PROVIDERS: ATTEND Internal Medicine
DX: M25.562 Pain in left knee (principal)

== ENCOUNTER → 2021-11-21 | Outpatient (CLI) | payer OTHER ==
[2021-11-21 23:02] LABS: Basophils # (A) 0.03 X 10*3/uL (0.00-0.10); Basophils % (A) 0.3 %; HCT 40.3 % (37.2-46.3); HGB 13.3 g/dL (12.0-15.0); Immature Grans, Automated 0.4 %; Lymphocytes # (A) 2.41 X 10*3/uL (0.90-5.00); MCH 29.8 pg (27.0-32.0); MCV 90.4 fL (80.0-97.0); Mean Platelet Volume 10.9 fL (9.5-12.2); Monocytes # (A) 0.58 X 10*3/uL (0.20-1.00); Monocytes % (A) 5.8 %; NRBC Per 100 WBC 0 /100 WBCS (0.0-0.0); Neutrophils # (A) 6.88 X 10*3/uL (1.80-7.70); Neutrophils % (A) 68.5 %; Platelet Count 284 X 10*3/uL (140-440); RBC 4.46 X 10*6/uL (4.10-5.20); RDW 12.1 % (11.5-14.5); WBC 10.04 X 10*3/uL (4.50-10.00)
== END | disposition home or self-care (01) ==
LOC: LABPAT 14:32
PROVIDERS: ATTEND Obstetrics & Gynecology
DX: Z01.812 Encounter for preprocedural laboratory examination (principal); O02.1 Missed abortion
CPT/HCPCS: 85025

== ENCOUNTER 2021-11-22 06:51 | Day surgery (SDC) | payer OTHER ==
[2021-11-20 14:47] VITALS: BMI 39.4
[~2021-11-22 06:51] MED LIST: DEXAMETHASONE SOD PHOSPHATE 4 MG/ML 1 ML VIAL IV ONE; LACTATED RINGERS 1,000 ML IV SCH; MIDAZOLAM 2 MG/2 ML VIAL IV PRN; ONDANSETRON 4 MG/2 ML VIAL IVP ONE; Pre Op ABX Message 1 EACH MISC MISCELLANE ONE; SCOPOLAMINE 1 MG/72 HR PATCH TRANSDERM ONE
[2021-11-22] MEDS ORDERED: HYDROmorphone 0.5 MG/0.5 ML SYRINGE IVP PRN (07:00)
[2021-11-22 07:31] LABS: Glucose,Whole Blood 90 mg/dL (70-110)
[2021-11-22] MEDS ORDERED: SUCCINYLCHOLINE CHLORIDE 100 MG/5 ML SYR IV ONE (07:37)
[2021-11-22] MEDS ORDERED: LIDOCAINE 2% INJ 20 MG/ML (2 ML VIAL) ONE (07:37)
[2021-11-22] MEDS ORDERED: KETOROLAC 15 MG/ML 1 ML VIAL ONE (07:37)
[2021-11-22] MEDS ORDERED: MIDAZOLAM 2 MG/2 ML VIAL ONE (07:37)
[2021-11-22] MEDS ORDERED: PROPOFOL 10 MG/ML 20 ML VIAL IV ONE (07:37)
[2021-11-22] MEDS ORDERED: fentaNYL (PF) 50 MCG/ML 2 ML AMP ONE (07:37)
[2021-11-22] MEDS ORDERED: diphenhydrAMINE 50 MG/ML 1 ML VIAL IVP PRN (08:18)
[2021-11-22] MEDS ORDERED: ONDANSETRON 4 MG/2 ML VIAL IVP PRN (08:18)
[2021-11-22] MEDS ORDERED: IBUPROFEN 600 MG TAB PO PRN (08:18)
[2021-11-22] MEDS ORDERED: SIMETHICONE 80 MG CHEWABLE PO PRN (08:18)
[2021-11-22] MEDS ORDERED: KETOROLAC 15 MG/ML 1 ML VIAL IVP PRN (08:18)
[2021-11-22] MEDS ORDERED: METOCLOPRAMIDE 5 MG/ML 2 ML VIAL IVP PRN (08:18)
[2021-11-22] MEDS ORDERED: Acetaminophen-Codeine 300-30mg TAB PO PRN ×2 (08:18)
--- NOTE | 2021-11-22 08:24 | P.OP ---
Date of Procedure: 11/22/21 Preoperative Diagnosis: #1. 8+ week missed Postoperative Diagnosis: Same Procedure(s) Performed: #1. Dilation and aspiration curettage Anesthesia: EVELINE Surgeon: Stevie Aguilar Estimated Blood Loss (ml): 350 IV fluids (ml): 400 Urine output (ml): 20 Pathology: other (Intrauterine contents) Condition: stable Disposition: PACU Operative Findings: pelvic examination demonstrated a roughly 8-9 week midplane mobile normal shaped uterus with normal adnexa bilaterally. Intraoperatively, the uterus sounded to 12 cm. Using a #9 curved aspiration curet, tissue seen passing through the tubing for approximately 5 passes after which time sharp curette demonstrated the typical gritty texture and no further tissue was produced either with the sharp or aspiration curet. The uterus was appreciably smaller following the procedure. Should the patient require hysterectomy, she is a candidate for a vaginal approach. Description of Procedure: The patient was prepped and draped in usual fashion after general endotracheal anesthesia was administered by the anesthesiologist. A weighted speculum was placed in the bladder draining approximately 20 mL of clear saran urine. The anterior lip of the cervix was grasped with a single-tooth tenaculum and uterus sounded to approximately 12 cm as noted above. Serial dilation was carried out to admit a #9 curved aspiration curet which was placed to the fundus the uterus and suction applied. After adequate suction had been built, thorough and circumferential aspiration curettage was carried out from the fundus to the cervix with tissue clearly seen passing through the tubing. Approximately 5 passes were made before no further tissue was being produced. At that time the aspiration curet was set aside and a medium sharp curette placed in the endometrial cavity and thorough and circumferential curettage carried out which time no further tissue was noted in the typical gritty texture was encountered throughout the entire cavity. One last pass was made with the aspiration curet with no further tissue noted. Bleeding was minimal at that time and the uterine cavity was appreciably smaller than at the outset of the case. All instru mentation was removed. There was no ongoing bleeding from the tenaculum site. Estimated blood loss for the entire case was approximately 350 mL. There were no complications. All sponge, instrument, and needle counts were correct. The patient tolerated the procedure well and proceeded to the recovery room in stable condition.
[2021-11-22] MEDS ORDERED: LACTATED RINGERS 1,000 ML IV SCH (08:30)
[2021-11-22 08:33] VITALS: TEMP 97.3
[2021-11-22 08:57] VITALS: RESP 17
[2021-11-22 09:26] VITALS: BP 108/67; PULSE 58
== END 2021-11-22 09:46 | disposition home or self-care (01) ==
LOC: OR 06:51
PROVIDERS: ATTEND Obstetrics & Gynecology
DX: O02.1 Missed abortion (principal); G40.909 Epilepsy, unspecified, not intractable, without status epilepticus; E28.2 Polycystic ovarian syndrome; Z79.84 Long term (current) use of oral hypoglycemic drugs; Z79.899 Other long term (current) drug therapy; Z88.3 Allergy status to other anti-infective agents; Z83.3 Family history of diabetes mellitus; Z82.49 Family history of ischemic heart disease and other diseases of the circulatory system; Z3A.08 8 weeks gestation of pregnancy; E11.9 Type 2 diabetes mellitus without complications; F17.290 Nicotine dependence, other tobacco product, uncomplicated; G43.909 Migraine, unspecified, not intractable, without status migrainosus; Z88.2 Allergy status to sulfonamides; Z80.3 Family history of malignant neoplasm of breast
CPT/HCPCS: 86900; 86901; 88305; 86850; 59820; J2250; J1100; J2405; J3010; J1885; J0330; J2704; J2001

== ENCOUNTER 2024-12-13 14:59 | Emergency (ER) | payer OTHER ==
[2024-12-13 15:12] VITALS: RESP 18
--- NOTE | 2024-12-13 15:47 | ED ---
General Adult HPI - General Chief complaint: Abdominal Pain Stated complaint: Cramping Time Seen by Provider: 12/13/24 15:14 Source: patient, RN notes reviewed Mode of arrival: ambulatory Limitations: no limitations - History of Present Illness Initial comments: 28-year-old female with history of PCOS presenting to emergency room with complaints of lower abdominal cramping and pain that started a few hours while she was at work. States that most the pain is located above her bladder and mildly to the left lower quadrant scribed as a stabbing type of sensation. She denies dysuria, hematuria, creased urinary frequency or urgency, vaginal discharge, diarrhea or constipation. Denies previous surgeries of the abdomen. Endorses nausea with no reported emesis. Denies fevers or chills. - Related Data Home Medications Medication Instructions Recorded Confirmed levETIRAcetam [Keppra] 1,000 mg PO BID 12/01/17 11/22/21 lamoTRIgine [LaMICtal] 100 mg PO BID 01/10/19 11/22/21 metFORMIN HCL [Glucophage] 500 mg PO BID 11/20/21 11/22/21 Allergies Allergy/AdvReac Type Severity Reaction Status Date / Time amoxicillin Allergy Rash/Hives Verified 12/13/24 15:13 sulfamethoxazole Allergy Unknown Verified 12/13/24 15:13 [From ] Childhood trimethoprim [From ] Allergy Unknown Verified 12/13/24 15:13 Childhood Review of Systems ROS Statement: Those systems with pertinent positive or pertinent negative responses have been documented in the HPI. ROS Other: All systems not noted in ROS Statement are negative. Past Medical History Past Medical History: Seizure Disorder Additional Past Medical History / Comment(s): hypoglycemia, ovarian cyst, PCOS(takes metformin), epilepsy-last seizure 5 yrs ago, migraines, frequent ear infections History of Any Multi-Drug Resistant Organisms: None Reported Past Surgical History: Adenoidectomy, Ear Surgery, Tonsillectomy Additional Past Surgical History / Comment(s): tubes in ears Past Anesthesia/Blood Transfusion Reactions: No Reported Reaction Additional Past Anesthesia/Blood Transfusion Reaction / Comment(s): adopted- limited hx Past Psychological History: ADD/ADHD, Anxiety, Depression, Panic Disorder Smoking Status: Former smoker, Vaper Past Alcohol Use History: None Reported Past Drug Use History: None Reported - Past Family History Mother Family Medical History: Cancer Additional Family Medical History / Comment(s): breast.adopted -limited hx General Exam Limitations: no limitations Neck exam: Present: normal inspection. Absent: tenderness, meningismus, lymphadenopathy Respiratory exam: Present: normal lung sounds bilaterally. Absent: respiratory distress, wheezes, rales, rhonchi, stridor Cardiovascular Exam: Present: regular rate, normal rhythm, normal heart sounds. Absent: systolic murmur, diastolic murmur, rubs, gallop, clicks GI/Abdominal exam: Present: soft, tenderness (supurapubic, LL pelvic), normal bowel sounds. Absent: distended, guarding, rebound, rigid Extremities exam: Present: normal inspection, full ROM, normal capillary refill. Absent: tenderness, pedal edema, joint swelling, calf tenderness Back exam: Present: normal inspection. Absent: CVA tenderness (R), CVA tenderness (L) Course Vital Signs 12/13/24 12/13/24 15:10 17:33 Temperature 98.0 F 98.1 F Pulse Rate 71 56 L Respiratory 18 18 Rate Blood Pressure 114/77 111/79 O2 Sat by Pulse 99 98 Oximetry Medical Decision Making - Medical Decision Making Was pt. sent in by a medical professional or institution (, PA, MDS MANAGER, urgent care, hospital, or [facility]...) When possible be specific @ -No Did you speak to anyone other than the patient for history (EMS, parent, family, police, friend...)? What history was obtained from this source @ -No Did you review nursing and triage notes (agree or disagree)? Why? @ -I reviewed and agree with nursing and triage notes Were old charts reviewed (outside hosp., previous admission, EMS record, old EKG, old radiological studies, urgent care reports/EKG's, [facility] records)? Report findings @ -No old charts were reviewed Differential Diagnosis (chest pain, altered mental status, abdominal pain women, abdominal pain men, vaginal bleeding, weakness, fever, dyspnea, syncope, headache, dizziness, GI bleed, back pain, seizure, CVA, palpatations, mental health, musculoskeletal)? @ -Differential Abdominal Pain Women: Appendicitis, Cholecystitis, diverticulosis, ischemic bowel, pancreatitis, hepatitis, UTI, gastroenteritis, AAA, incarcerated hernia, bowel obstruction, constipation, inflammatory bowel, hepatitis, peptic ulcer disease, splenic infarction, perforated viscus, vulvitis, ovarian torsion, PID, kidney stone, placenta abruption, this is not meant to be an all-inclusive list EKG interpreted by me (3pts min.). @ -None X-rays interpreted by me (1pt min.). @ -None done CT interpreted by me (1pt min.). @ -None done U/S interpreted by me (1pt. min.). @ -None done What testing was considered but not performed or refused? (CT, X-rays, U/S, labs)? Why? @ -None What meds were considered but not given or refused? Why? @ -None Did you discuss the management of the patient with other professionals (professionals i.e. DrLul, PA, MDS MANAGER, lab, RT, psych nurse, social work assistant, taxicab starter, teacher, chief privacy officer, caseworker)? Give summary @ -No Was smoking cessation discussed for >3mins.? @ -No Was critical care preformed (if so, how long)? @ -No Were there social determinants of health that impacted care today? How? (Homelessness, low income, unemployed, alcoholism, drug addiction, transportation, low edu. Level, literacy, decrease access to med. care, snf, rehab)? @ -No Was there de-escalation of care discussed even if they declined (Discuss DNR or withdrawal of care, Hospice)? DNR status @ -No What co-morbidities impacted this encounter? (DM, HTN, Smoking, COPD, CAD, Cancer, CVA, ARF, Chemo, Hep., AIDS, mental health diagnosis, sleep apnea, morbid obesity)? @ -None Was patient admitted / discharged? Hospital course, mention meds given and route, prescriptions, significant lab abnormalities, going to OR and other pertinent info. @ -Left AGAINST MEDICAL ADVICE. 28-year-old female presenting to the ER with complaints of lower abdominal cramping and pain. Patient has reproducible pain to the suprapubic region and left lower pelvic. Patient's laboratory testing including CBC, CMP, urinalysis unremarkable. hCG is negative. Patient left AGAINST MEDICAL ADVICE prior to ultrasound imaging results. Undiagnosed new problem with uncertain prognosis? @ -No Drug Therapy requiring intensive monitoring for toxicity (Heparin, Nitro, Insulin, Cardizem)? @ -No Were any procedures done? @ -No Diagnosis/symptom? @ -Left AGAINST MEDICAL ADVICE, left pelvic pain Acute, or Chronic, or Acute on Chronic? @ -Acute Uncomplicated (without systemic symptoms) or Complicated (systemic symptoms)? @ -Undetermined Side effects of treatment? @ -No Exacerbation, Progression, or Severe Exacerbation? @ -No Poses a threat to life or bodily function? How? (Chest pain, [place], [place], pneumonia, PE, COPD, DKA, ARF, appy, cholecystitis, CVA, Diverticulitis, Homicidal, Suicidal, threat to staff... and all critical care pts) @ -No - Lab Data Result diagrams: 12/13/24 15:55 12/13/24 15:55 Lab Results 12/13/24 12/13/24 12/13/24 Range/Units 15:55 15:55 15:55 WBC 10.25 H (4.50-10.00) 10*3/uL RBC 4.64 (4.10-5.20) 10*6/uL Hgb 14.6 (12.0-15.0) g/dL Hct 41.6 (37.2-46.3) % MCV 89.7 (80.0-97.0) fL MCH 31.5 (27.0-32.0) pg MCHC 35.1 (32.0-37.0) g/dL Plt Count 262 (140-440) 10*3/uL MPV 9.9 (9.5-12.2) fL Immature Gran % (Auto) 0.3 % Neutrophils % 62.0 % Lymphocytes % 29.8 % Monocytes % 6.1 % Eosinophils % 1.3 % Basophils % 0.5 % Immature Gran # 0.03 (0.00-0.04) 10*3/uL Neutrophils # 6.36 (1.80-7.70) 10*3/uL Lymphocytes # 3.05 (0.90-5.00) 10*3/uL Monocytes # 0.63 (0.20-1.00) 10*3/uL Eosinophils # 0.13 (0.04-0.35) 10*3/uL Basophils # 0.05 (0.00-0.10) 10*3/uL Sodium (137-145) mmol/L Potassium (3.5-5.1) mmol/L Chloride (98-107) mmol/L Carbon Dioxide (22-30) mmol/L Anion Gap mmol/L BUN (7-17) mg/dL Creatinine (0.52-1.04) mg/dL Est GFR (CKD-EPI)AfAm (>60 ml/min/1.73 sqM) Est GFR (CKD-EPI)NonAf (>60 ml/min/1.73 sqM) Glucose (74-99) mg/dL Calcium (8.4-10.2) mg/dL Total Bilirubin (0.2-1.3) mg/dL AST (14-36) U/L ALT (4-34) U/L Alkaline Phosphatase (38-126) U/L Total Protein (6.3-8.2) g/dL Albumin (3.5-5.0) g/dL Lipase (23-300) U/L Urine Color Light Yellow Urine Appearance Clear (Clear) Urine pH 5.0 (5.0-8.0) Ur Specific [place] 1.021 (1.001-1.035) Urine Protein Negative (Negative) Urine Glucose (UA) Negative (Negative) Urine Ketones Negative (Negative) Urine Blood Negative (Negative) Urine Nitrite Negative (Negative) Urine Bilirubin Negative (Negative) Urine Urobilinogen <2.0 (<2.0) mg/dL Ur Leukocyte Esterase Negative (Negative) Urine HCG, Qual Not Detected (Not Detectd) 12/13/24 Range/Units 15:55 WBC (4.50-10.00) 10*3/uL RBC (4.10-5.20) 10*6/uL Hgb (12.0-15.0) g/dL Hct (37.2-46.3) % MCV (80.0-97.0) fL MCH (27.0-32.0) pg MCHC (32.0-37.0) g/dL Plt Count (140-440) 10*3/uL MPV (9.5-12.2) fL Immature Gran % (Auto) % Neutrophils % % Lymphocytes % % Monocytes % % Eosinophils % % Basophils % % Immature Gran # (0.00-0.04) 10*3/uL Neutrophils # (1.80-7.70) 10*3/uL Lymphocytes # (0.90-5.00) 10*3/uL Monocytes # (0.20-1.00) 10*3/uL Eosinophils # (0.04-0.35) 10*3/uL Basophils # (0.00-0.10) 10*3/uL Sodium 139 (137-145) mmol/L Potassium 3.7 (3.5-5.1) mmol/L Chloride 108 H (98-107) mmol/L Carbon Dioxide 19 L (22-30) mmol/L Anion Gap 12 mmol/L BUN 11 (7-17) mg/dL Creatinine 0.63 (0.52-1.04) mg/dL Est GFR (CKD-EPI)AfAm >90 (>60 ml/min/1.73 sqM) Est GFR (CKD-EPI)NonAf >90 (>60 ml/min/1.73 sqM) Glucose 86 (74-99) mg/dL Calcium 9.4 (8.4-10.2) mg/dL Total Bilirubin 0.4 (0.2-1.3) mg/dL AST 22 (14-36) U/L ALT 36 H (4-34) U/L Alkaline Phosphatase 85 (38-126) U/L Total Protein 7.2 (6.3-8.2) g/dL Albumin 4.6 (3.5-5.0) g/dL Lipase 115 (23-300) U/L Urine Color Urine Appearance (Clear) Urine pH (5.0-8.0) Ur Specific [place] (1.001-1.035) Urine Protein (Negative) Urine Glucose (UA) (Negative) Urine Ketones (Negative) Urine Blood (Negative) Urine Nitrite (Negative) Urine Bilirubin (Negative) Urine Urobilinogen (<2.0) mg/dL Ur Leukocyte Esterase (Negative) Urine HCG, Qual (Not Detectd) Disposition Clinical Impression: Pelvic pain, Left against medical advice Disposition: LEFT AGAINST MEDICAL ADVICE Condition: Undetermined Referrals: None,Stated [Primary Care Provider] - 1-2 days
[2024-12-13] MEDS: ONDANSETRON ODT 4 MG TAB PO STA (16:02)
[2024-12-13] MEDS: ACETAMINOPHEN TAB 325 MG TAB PO STA (16:02)
[2024-12-13] MEDS: ONDANSETRON 4 MG/2 ML VIAL IVP STA (16:04)
[2024-12-13 16:07] LABS: Basophils # (A) 0.05 10*3/uL (0.00-0.10); Basophils % (A) 0.5 %; Eosinophils # (A) 0.13 10*3/uL (0.04-0.35); Eosinophils % (A) 1.3 %; HCT 41.6 % (37.2-46.3); HGB 14.6 g/dL (12.0-15.0); Lymphocytes # (A) 3.05 10*3/uL (0.90-5.00); Lymphocytes % (A) 29.8 %; MCH 31.5 pg (27.0-32.0); MCHC 35.1 g/dL (32.0-37.0); MCV 89.7 fL (80.0-97.0); Monocytes # (A) 0.63 10*3/uL (0.20-1.00); Monocytes % (A) 6.1 %; Neutrophils # (A) 6.36 10*3/uL (1.80-7.70); Neutrophils % (A) 62.0 %; Platelet Count 262 10*3/uL (140-440); RBC 4.64 10*6/uL (4.10-5.20); RDW 11.9 % (11.5-14.5); WBC 10.25 10*3/uL (4.50-10.00)
[2024-12-13 16:08] LABS: Bilirubin,Urine Negative (Negative); Blood,Urine Negative (Negative); Color,Urine Light Yellow; Glucose,Urine (UA) Negative (Negative); Ketones,Urine Negative (Negative); Leukocyte Esterase,Urine Negative (Negative); Nitrite,Urine Negative (Negative); PH, Urine 5.0 (5.0-8.0); Protein,Urine Negative (Negative); Specific Gravity,Urine 1.021 (1.001-1.035); Urobilinogen,Urine <2.0 mg/dL (<2.0)
[2024-12-13 16:26] LABS: ALT 36 U/L (4-34); AST 22 U/L (14-36); African American GFR (CKD) >90 (>60 ml/min/1.73 sqM); Albumin 4.6 g/dL (3.5-5.0); Alkaline Phosphatase 85 U/L (38-126); Anion Gap 12 mmol/L; Blood Urea Nitrogen 11 mg/dL (7-17); Calcium 9.4 mg/dL (8.4-10.2); Carbon Dioxide 19 mmol/L (22-30); Chloride 108 mmol/L (98-107); Glucose 86 mg/dL (74-99); Lipase 115 U/L (23-300); Non-African American GFR(CKD) >90 (>60 ml/min/1.73 sqM); Potassium 3.7 mmol/L (3.5-5.1); Sodium 139 mmol/L (137-145); Total Protein 7.2 g/dL (6.3-8.2)
[2024-12-13 17:37] VITALS: BP 111/79; PULSE 56; TEMP 98.1
--- NOTE | 2024-12-13 18:17 | US ---
EXAMINATION TYPE: US pelvic complete DATE OF EXAM: 12/13/2024 COMPARISON: US 2018 CLINICAL INDICATION: Female, 28 years old with history of pelvic pain, hx PCOS; patient state pelvic pain and cramping, PCOS. does not know LMP. states recently got IUD removed TECHNIQUE: Transabdominal (TA). Transabdominal grayscale sonographic images of the pelvis were acquired Doppler imaging: Color Doppler Images were obtained. Spectral doppler images were obtained. FINDINGS: Date of LMP: unknown lmp EXAM MEASUREMENTS: Uterus: 10.9 x 3.4 x 5.3 cm Endometrial Stripe: 0.3 cm Right Ovary: 2.3 x 1.4 x 2.2 cm Left Ovary: 3.2 x 1.7 x 2.8 cm 1. Uterus: Anteverted wnl as best seen 2. Endometrium: wnl 3. Right Ovary: wnl 4. Left Ovary: 1.4 x 1.5 x 1.8cm hypoechoic area with peripheral vascularity seen Spectral, color and waveform doppler imaging shows good arterial and venous flow within the ovaries ; there is no evidence for ovarian torsion. 5. Bilateral Adnexa: wnl as best visualized 6. Posterior cul-de-sac: wnl IMPRESSION: 1. Solid appearing lesion within the left ovary. Additional workup recommended. O-rad 3. O-RADS 2021 [email or web address] [facility], Workstation: [facility], 12/13/2024 6:15 PM
== END 2024-12-13 18:26 | disposition left against medical advice (07) ==
LOC: EC 14:59
DX: R10.2 Pelvic and perineal pain (principal); F17.290 Nicotine dependence, other tobacco product, uncomplicated; Z88.0 Allergy status to penicillin; Z88.1 Allergy status to other antibiotic agents; Z88.2 Allergy status to sulfonamides; Z53.29 Procedure and treatment not carried out because of patient's decision for other reasons
CPT/HCPCS: 36415; 76856; 80053; 81003; 81025; 83690; 85025; 93975; 99284